=== PATIENT | female | born 2005 | race Caucasian/White ===

== ENCOUNTER → 2023-10-26 11:48 | Outpatient (BNVA) | payer BC, SELFPAY | PROVIDERS: Visit Provider Nurse Practitioner Women's Health | DX: Z34.90 Encounter for supervision of normal pregnancy, unspecified, unspecified trimester (principal) | CPT/HCPCS: 80053; 80307; 84315; 84439; 84443; 84481; 84702; 85025; 86592; 86762; 86803; 86850; 86900; 87086; 87340; 87806 ==

== ENCOUNTER 2023-10-27 09:18 | Outpatient (CLI) | payer BC, SELFPAY ==
[2023-10-27 09:20] VITALS: BMI 28.0
[2023-10-27 09:52] VITALS: RESP 16
[2023-10-27 10:00] VITALS: BP 119/67; PULSE 68
[2023-10-27] MEDS: lactated ringers 1,000 ML 999 ML IV (10:10)
[2023-10-27] MEDS: ondansetron 2 mg/ML SDV 2 mL 4 MG IVP (10:10)
[2023-10-27 10:35] LABS: Urine Appearance Hazy (CLEAR); Urine Color Yellow (Yellow)
[2023-10-27 10:36] LABS: Bilirubin Urine 1+ (Negative); Blood Urine Neg (Negative); Glucose Urine UA Norm (Normal); Ketones Urine 3+ (Negative); Leukocyte Esterase Urine Negative (Negative); Nitrate Urine Negative (Negative); Protein Urine Neg (Negative); Urobilinogen Urine 4 mg/dL (Negative); pH Urine 5 (5-7)
[2023-10-27 10:37] LABS: Mucus Urine 3+ /hpf; RBC Urine RARE /hpf (0-2); WBC Urine 0-4 /hpf (0-5)
[2023-10-27 10:38] LABS: Add Urine Culture? No; Bacteria Urine 1+ /hpf
[2023-10-27 10:40] LABS: Anion Gap 16.6 (5-19); Blood Urea Nitrogen 6 mg/dL (6-20); Calcium 9.2 mg/dL (8.5-10.5); Carbon Dioxide 21 mmol/L (22-29); Chloride 102 mmol/L (98-107); Glomerular Filtration Rate 127.5 mL/min (90-130); Glucose 79 mg/dL (65-115); Osmolality Calculated 279 mOsm/kg (285-295); Potassium 3.6 mmol/L (3.5-5.1); Sodium 136 mmol/L (136-145)
--- NOTE | 2023-10-27 11:50 | PC.NURSE ---
PT WAS ON MONITOR FOR BLOOD PRESSURES UNSURE WHY [facility]
== END 2023-10-27 11:25 | disposition home or self-care (01) ==
LOC: OPOB 09:23 → OBGYN 09:25
PROVIDERS: Visit Provider Obstetrics & Gynecology
DX: O21.9 Vomiting of pregnancy, unspecified (principal); Z3A.00 Weeks of gestation of pregnancy not specified
CPT/HCPCS: 36415; 80048; 81001; 99211; J2405; J7120

== ENCOUNTER → 2023-11-16 11:21 | Outpatient (BNVA) | payer BC, SELFPAY | PROVIDERS: Visit Provider Nurse Practitioner Women's Health | DX: Z36.87 Encounter for antenatal screening for uncertain dates (principal) | CPT/HCPCS: 76815 ==

== ENCOUNTER → 2023-12-20 10:28 | Outpatient (BNVA) | payer BC, SELFPAY | PROVIDERS: Visit Provider Obstetrics & Gynecology | DX: Z34.90 Encounter for supervision of normal pregnancy, unspecified, unspecified trimester (principal) | CPT/HCPCS: 76805; 84315 ==

== ENCOUNTER → 2024-01-18 10:21 | Outpatient (BNVA) | payer BC, SELFPAY | PROVIDERS: Visit Provider Obstetrics & Gynecology | DX: Z36.9 Encounter for antenatal screening, unspecified (principal) | CPT/HCPCS: 76816 ==

== ENCOUNTER 2024-07-15 08:56 | Emergency (ER) | payer SELFPAY ==
[2024-07-15 09:05] VITALS: BP 117/65; PULSE 64; RESP 17; TEMP 36.6; O2SAT 100; BMI 26.1
--- NOTE | 2024-07-15 09:08 | XRR_ITS ---
PROCEDURE INFORMATION: Exam: XR Left Elbow Exam date and time: 07/15/2024 9:21 AM Age: 18 years old Clinical indication: Injury or trauma; Fall; Blunt trauma (contusions or hematomas); Elbow; Left; Additional info: Get to mid forearm TECHNIQUE: Imaging protocol: Radiologic exam of the left elbow. Views: 3 or more views. COMPARISON: CR (UP EXM, ) 07/15/2024 9:21 AM FINDINGS: Bones/joints: Prominent fat pads indicate a left elbow joint effusion. Otherwise, unremarkable. Soft tissues: Otherwise, unremarkable soft tissues. XR/XR elbow LT min 3V* [id number] IMPRESSION: Left elbow joint effusion. No other acute findings.
--- NOTE | 2024-07-15 09:08 | XRR_ITS ---
PROCEDURE INFORMATION: Exam: XR Left Wrist Exam date and time: 07/15/2024 9:21 AM Age: 18 years old Clinical indication: Injury or trauma; Fall; Blunt trauma (contusions or hematomas); Wrist; Left; Additional info: Get to mid forearm TECHNIQUE: Imaging protocol: Radiologic exam of the left wrist. Views: 3 or more views. COMPARISON: CR (UP EXM, ) 07/15/2024 9:21 AM FINDINGS: Bones/joints: Normal. Soft tissues: Normal. XR/XR wrist LT min 3V* [id number] IMPRESSION: No acute findings.
--- NOTE | 2024-07-15 09:08 | W.ED.UPPEXIN ---
HPI - Extremity Injury (Upper) General: Chief Complaint: Extremity Injury, Upper Stated Complaint: Left arm injury Time Seen by Provider: 07/15/24 08:59 Source: patient Mode of arrival: ambulatory Limitations: no limitations History of Present Illness: Patient is a nice 18-year-old female presents to ED today for evaluation of left arm injury that she sustained yesterday after accidentally slipping on concrete and falling on her outstretched hand. She is complaining of pain to her left elbow and left wrist and has noticed swelling around the left elbow. She has no other injuries or complaints at this time. complaint: injury to: left, elbow and wrist Onset (ago): day(s) (yesterday evening) Other injuries: none Place: home Relieving factors: immobilization Exacerbating factors: movement of extremity Associated symptoms: Reports no associated symptoms; Denies neck pain or weakness in extremities Treatments prior to arrival: other (sling) Related Data Home Medications Medication Instructions Recorded Confirmed docosahexaenoic acid 200 mg mg PO 10/26/23 01/10/24 capsule ( DHA) Previous Rx's Medication Instructions Recorded promethazine 25 mg tablet 25 mg PO TID PRN nausea and 10/26/23 vomiting #30 tabs ondansetron HCl 4 mg tablet 4 mg PO Q8H PRN nausea and 11/16/23 vomiting #60 tabs Allergies Allergy/AdvReac Type Severity Reaction Status Date / Time amoxicillin Allergy Unknown ALGY-Anaphy Verified 01/10/24 09:15 laxis Penicillins Allergy Unknown ALGY-Anaphy Verified 01/10/24 09:15 laxis Review of Systems Musc: Reports: joint pain (L elbow, L wrist), joint swelling (L elbow) and limited range of motion (L elbow); Denies: neck pain or back pain Skin/Breast: Denies: rash Neuro: Denies: headache(s), numbness in extremities, weakness in extremities, sensory changes or dizziness PFSH ED PFSH: Family History Mother Diabetes Grandmother Diabetes Grandfather Diabetes Other Diabetes mellitus type 1 Denies family history of Colon cancer Ovarian cancer Heart disease Breast cancer Hypertension Uterine cancer Thyroid disease Stroke Physical Exam Const: COMMON NORMALS: no acute distress, average body habitus, patient oriented x3, no limitations, healthy appearing, alert and well nourished Extremity: GENERAL: Yes normal exam except as noted LEFT UPPER EXTREMITY: Yes elbow joint (effusion, limited ROM secondary to pain) Left elbow: Yes ROM (decreased) and Yes neurovascular exam (normal) and Yes wrist (mild discomfort with distal radial palpation; no swelling) Left wrist: Yes inspection (normal gross inspection) and Yes neurovascular exam (normal) Neuro: COMMON NORMALS: patient oriented x3, moves all extremities, no focal motor deficits and no sensory deficits noted SENSORIUM/ORIENTATION: Yes alert Skin: TRAUMA: no lacerations or abrasions Course Vital Signs: Vital signs: Vital Signs Temperature 97.9 F 07/15/24 09:05 Pulse Rate 64 07/15/24 09:05 Respiratory Rate 17 07/15/24 09:05 Blood Pressure 117/65 07/15/24 09:05 Pulse Oximetry 100 07/15/24 09:05 Oxygen Delivery Me thod Room Air 07/15/24 09:05 MDM - Extremity Injury (Upper) Medical Decision Making Patient with history of trauma, limited ROM of elbow, and effusion present. Radiology read negative. I question a small radial head fx on personal interpretation. Regardless-based on history she will be placed in a sling for occult elbow fracture and will follow up with orthopedics. Medical Records I reviewed the patient's medical records. Lab Data Radiology Impressions Elbow X-Ray 07/15/24 09:08 IMPRESSION: Left elbow joint effusion. No other acute findings. Wrist X-Ray 07/15/24 09:08 IMPRESSION: No acute findings. All radiology interpretation(s) finalized by discharge Discharge Plan Discharge Patient Disposition: Home Clinical Impression: Occult closed fracture of left elbow Qualifiers: Encounter type: initial encounter Qualified Code(s): S42.402A - Unspecified fracture of lower end of left humerus, initial encounter for closed fracture Condition: Stable Prescriptions: No Action DHA 200 mg capsule PO promethazine 25 mg tablet 25 mg PO TID PRN (Reason: nausea and vomiting) Qty: 30 3RF ondansetron HCl 4 mg tablet 4 mg PO Q8H PRN (Reason: nausea and vomiting) Qty: 60 2RF Discharge Orders: Discharge ED (Routine); Ordered 07/15/24 Ordered By: Dana Nolasco Patient Instructions: Elbow Fracture (DC) Activity Restrictions/Additional Instructions: As we discussed, case management should reach out to you shortly to help set you up with your follow-up orthopedic appointment. You need to stay in your sling at all times apart from showering or bathing until told otherwise by orthopedics. Coding Level of Care Code ED Mitigation Supervisor for Heidi Alexander
--- NOTE | 2024-07-15 09:48 | DCPLANNER ---
messaged ortho for er f/u
[2024-07-15 09:52] VITALS: BP 117/65; PULSE 68; RESP 17; TEMP 36.6; O2SAT 97
== END 2024-07-15 09:56 | disposition home or self-care (01) ==
PROVIDERS: Emergency Provider Physician Assistant
DX: S42.492A Other displaced fracture of lower end of left humerus, initial encounter for closed fracture (principal); W01.0XXA Fall on same level from slipping, tripping and stumbling without subsequent striking against object, initial encounter
CPT/HCPCS: 73080; 73110; 99283

== ENCOUNTER → 2024-07-24 14:40 | Outpatient (BNVA) | payer MEDICAID, SELFPAY | PROVIDERS: Visit Provider Nurse Practitioner | DX: S52.122A Displaced fracture of head of left radius, initial encounter for closed fracture (principal); X58.XXXA Exposure to other specified factors, initial encounter | CPT/HCPCS: 73080 ==

== ENCOUNTER 2024-08-21 13:45 | Outpatient (CLI) | payer MEDICAID, SELFPAY ==
--- NOTE | 2024-08-21 13:45 | MR_ITS ---
WS: [id number] MRI LEFT ELBOW WITHOUT CONTRAST. COMPARISON: Radiograph 07/24/2024 Multiplanar, multisequence imaging is performed without contrast. Large amount of marrow edema involving the proximal radius including the radial head and neck into th e diaphysis. There is a nondisplaced transverse fracture through the radial neck. No additional marro w edema and no additional fractures. There is a very small joint effusion. Radial and ulnar collateral ligaments and the flexor and extensor tendons are intact. No edema or tea r is identified. The biceps tendon normally attaches at the bicipital groove. There is no tear identi fied. Distal triceps tendon is normal. Normal biceps brachialis tendon. MR/MR elbow LT wo con* [id number] IMPRESSION: 1. Marrow edema in the proximal radius extending into the diaphysis. 2. Nondisplaced radial neck fracture. 3. Small joint effusion. 4. No tendon or ligament tears identified.
== END 2024-08-21 13:50 | disposition home or self-care (01) ==
PROVIDERS: PCP Nurse Practitioner Family; Visit Provider Nurse Practitioner
DX: S52.101A Unspecified fracture of upper end of right radius, initial encounter for closed fracture (principal); W01.0XXA Fall on same level from slipping, tripping and stumbling without subsequent striking against object, initial encounter
CPT/HCPCS: 73221

== ENCOUNTER → 2024-09-04 09:25 | Outpatient (BNVA) | payer MEDICAID, SELFPAY | PROVIDERS: PCP Nurse Practitioner Family; Visit Provider Nurse Practitioner | DX: S52.125D Nondisplaced fracture of head of left radius, subsequent encounter for closed fracture with routine healing; X58.XXXD Exposure to other specified factors, subsequent encounter | CPT/HCPCS: 73080 ==

== ENCOUNTER → 2025-04-24 14:27 | Outpatient (BNVA) | payer MEDICAID, SELFPAY | PROVIDERS: PCP Nurse Practitioner Family; Visit Provider Nurse Practitioner Women's Health | DX: N91.2 Amenorrhea, unspecified (principal); Z32.01 Encounter for pregnancy test, result positive | CPT/HCPCS: 81025; 84702; 86850; 86900 ==

== ENCOUNTER → 2025-05-21 10:39 | Outpatient (BNVA) | payer MEDICAID, SELFPAY | PROVIDERS: PCP Nurse Practitioner Family; Visit Provider Nurse Practitioner Women's Health | DX: Z36.9 Encounter for antenatal screening, unspecified (principal); O30.032 Twin pregnancy, monochorionic/diamniotic, second trimester | CPT/HCPCS: 76801 ==

== ENCOUNTER → 2025-05-28 08:04 | Outpatient (BNVA) | payer MEDICAID, SELFPAY | PROVIDERS: PCP Nurse Practitioner Family; Visit Provider Nurse Practitioner Women's Health | DX: Z34.90 Encounter for supervision of normal pregnancy, unspecified, unspecified trimester (principal); Z3A.11 11 weeks gestation of pregnancy | CPT/HCPCS: 80307; 81000; 84443; 85025; 86592; 86762; 86803; 87086; 87340; 87491; 87591; 87661; 87806 ==

== ENCOUNTER → 2025-06-04 11:00 | Outpatient (BNVA) | payer MEDICAID, SELFPAY | PROVIDERS: PCP Nurse Practitioner Family; Visit Provider Obstetrics & Gynecology | DX: Z12.4 Encounter for screening for malignant neoplasm of cervix (principal) | CPT/HCPCS: 87624 ==

== ENCOUNTER 2025-06-17 12:18 | Emergency (ER) | payer MEDICAID, SELFPAY ==
--- NOTE | 2025-06-17 12:19 | US_ITS ---
WS: [id number] Obstetrical ultrasound, limited. HISTORY: Twin gestation with bleeding and cramping. COMPARISON: 05/21/2025 There is a twin gestation. Labeling of the twin gestation is not sufficient to document which fetus is twin A and which fetus is twin B. Both gestations have normal cardiac activity around 157 to 159 bpm. Normal amount of amniotic fluid. The cervix is closed measuring 4.0 cm. Placenta is anterior and only a single placenta is identified. There is no abruption or previa. US/US OB limited twins [id number] IMPRESSION: 1. Very limited evaluation of the twin gestation. Normal heart rates within ea ch gestation. 2. Normal amniotic fluid. 3. Cervix is closed.
--- OUTSIDE RECORDS SUMMARY | 2025-06-17 12:24 | XMS_ITS | Patient Health Record ---
Author Organization [facility] Address [address] [place] [address] Care Team Providers Care Trimmer Tailer Name Role Phone Elina Mtz Primary Care Provider MARIO, [facility] Unavailable Unavailable Allergies Allergen (clinical drug ingredient) Drug/Non Drug Allergy documented on EMR Reaction Allergy Type Onset Date Status Penicillin Unknown Drug Allergy Active Results Component Value Reference Range Flag Notes UA Without Micro-[place], [place] - [address] Reviewed date:01/22/2025 08:42:12 AM Interpretation: Performing Lab: Notes/Report: Color orange Clarity cloudy Glucose negative Bili negative Ketones negative Sp Celina 1.010 Blood negative pH 7.0 Protein negative Urobili negative Nitrites positive Leukocytes 3+ Test, Urine - 8102 5 Reviewed date:04/09/2025 02:37:18 PM Interpretation: Performing Lab: Notes/Report: Test, Urine positive T3 Free [id number] Reviewed date:01/14/2025 12:42:35 PM Interpretation: Performing Lab: Notes/Report: Diagnosis Description: Encounter for screening for other suspected endocrine disorder Free T3 3.7 2.3-4.2 pg/mL T4 [id number] Reviewed date:01/14/2025 12:42:41 PM Interpretation: Performing Lab: Notes/Report: Diagnosis Description: Encounter for screening for other suspected endocrine disorder Free T4 1.13 0.89-1.76 NG/DL HCG Serum Quant [id number] Reviewed date:01/22/2025 08:42:38 AM Interpretation: Performing Lab: Notes/Report: Diagnosis Description: Abnormal uterine and vaginal bleeding, unspecified HCG Quant 3 NA 1-3 mlU/ML non female . < 1 mlU/ML adult male Thyroid Stimulating Hormone (TSH) [id number] Reviewed date:01/22/2025 08:42:49 AM Interpretation: Performing Lab: Notes/Report: Diagnosis Description: Encounter for screening for other suspected endocrine disorder TSH 2.031 .358-3.740 MlU/ML CBC w\ Auto Diff 73067 Reviewed date:01/22/2025 08:43:01 AM Interpretation: Performing Lab: Notes/Report: Diagnosis Description: Abnormal uterine and vaginal bleeding, unspecified WBC 8.2 4.5-11.0 X10'3 RBC 4.46 4.00-5.20 X10'6 Hgb 12.2 12.0-16.0 G/DL Hct 38.8 36.0-46.0 % MCV 87.0 80.0-100.0 FL MCH 27.4 27.0-31.0 PG MCHC 31.4 31.0-37.0 G/DL Platelet 306 150-400 X10'3 RDW-SD 40.4 35.0-49.0 FL RDW-CV 12.8 12.2-15.6 % MPV 11.0 9.2-12.0 FL Neutro Auto% 66.1 40.0-70.0 % Lymph Auto% 25.2 22.0-44.0 % [place] Auto% 6.1 3.0-7.0 % Eos Auto% 1.7 2.0-4.0 % LOW Baso Auto% 0.7 0.0-1.0 % Imm Gran% .2 .0-.4 % Neutro Abs 5.45 .80-7.70 Absolute Neutrophil Count 5450 NA Lymph Abs 2.08 .10-4.10 [place] Abs .50 .20-1.00 Eos Abs .14 .00-.40 Baso Abs .06 .00-.20 Imm Gran Abs .02 .00-.10 NRBC# .00 .00-.20 X10'3 NRBC% .00 .00-.20 /100 int act WBC's Reason For Referral Reason Left elbow pain, hea led fracture Diagnosis 1 Nondisplaced fractur e of head of left radius, subsequent encounter for closed fracture with routine healing (S52.125D) Diagnosis 2 Left elbow pain (M25 .522) Referral Organization [facility] Referring Provider First Name Elina Referring Provider Last Name Anaderrick Referring Provider Speciality Nurse Shaylee hopkins Referred Provider Specialty Physical The rapist General Notes BirgitmelanieAlis 09/26 03:13:33 PM >faxed to [facility] Referral Priority Routine Reason IUP Diagnosis 1 IUP (intrauterine pr egnancy), incidental (Z33.1) Referral Organization [facility] Referring Provider First Name Elina Referring Provider Last Name [facility] Referring Provider Speciality Nurse Shaylee hopkins Referred Provider undefined General Notes BirgitmelanieAlis 04/22 03:47:44 PM >FAXED TO DR JIMENEZ AT [facility] Referral Priority Routine Medications Medication SIG (Take, Route, Frequency, Duration) Notes Start Date End Date Status Vitamins 27-0.8 MG Tablet 1 tablet Orally Once a day; Duration: 30 days 04/09/2025 Active Ondansetron 4 MG Tablet Disintegrating 1 tablet on the tongue and allow to dissolve Orally every 6 hrs as needed 04/09/2025 Active Escitalopram Oxalate 10 MG Tablet Take 1 tablet by mouth once daily; Duration: 30 days Not-Taking Immunizations Vaccine Route Administration Date Status Comme nts Flucelvax Trivalent, Syringe 0.5 mL, PF IM Intramuscular 12/17/2024 Administered Patient tolerat ed well. Tuberculin PPD IM Intramuscular 12/17/2024 Administered Pa forrest tolerated well. Patient did not get ppd read last time, She is to return 12/19/2024 to have read Flucelvax Trivalent, Syringe 0.5 mL, PF Unknown 09/25/2024 Refused Tuberculin PPD IM Intramuscular 12/03/2024 Administered Patient tolerated well. Will return on 12/05/24 to be read. Patient did not return to have read Social History Tobacco Use: Social History Observation Description Date Details (start date - stop date) Never Smoker NA - NA Social History Depression Screening Social Info Question Answer Notes PHQ-9 Little interest or pleasure in doing thin gs Not at all Feeling down, depressed, or hopeless Not at all Trouble falling or staying asleep, or sleeping t oo much Not at all Feeling tired or having little energy Not at all Poor appetite or overeating Not at all Feeling bad about yourself, or that you are a failure, or have let yourself or your family down Not at all Trouble concentrating on thi ngs, such as reading the newspaper or watching television Not at all Moving or speaking so slowly that other people could have noticed. Or the opposite ? being so fidgety or restless that you have been moving around a lot more than usual Not at all Thoughts that you would be b annabelle off , or of hurting yourself in some way Not at all Total Score 0 Drugs/Alcohol: Social Info Question Answer Notes Alcohol Screen (Audit-C) Did you have a drink containing alcohol in the past year? No Points 0 Interpretation Negative Tobacco Use: Social Info Question Answer Notes xTobacco Use/Smoking Are you a nonsmoker Section Notes: 05/25/22 05/25/22 05/25/22 05/25/22 05/25/22 05/29/23 PHQ9 05/25/22 05/29/23 PHQ9 10/28/24 PHQ9 05/25/22 05/29/23 PHQ9 10/28/24 PHQ9 05/25/22 05/29/23 PHQ9 10/28/24 PHQ9 05/25/22 05/29/23 PHQ9 10/28/24 PHQ9 05/25/22 05/25/22 05/25/22 05/25/22 05/29/23 PHQ9 05/25/22 05/29/23 PHQ9 05/25/22 05/29/23 PHQ9 05/25/22 05/29/23 PHQ9 05/25/22 05/29/23 PHQ9 10/28/24 PHQ9 05/25/22 05/29/23 PHQ9 10/28/24 PHQ9 Problems Problem Type SNOMED Code ICD Code Onset Dates Problem Status W/U Status Risk Notes Problem Bipolar 1 disorder (812051847) Bipolar 1 disorder (F31.9) Active confirmed Problem Attention deficit hyperactivity disorder (367093223) Attention deficit hyperactivity disorder (ADHD), unspecified ADHD type (F90.9) Active confirmed Problem Sinusitis (39073813) Sinusitis (J32.9) Active confirmed Problem Amenorrhea (04701866) Amenorrhea (N91.2) Active confirmed Problem Abnormal vaginal bleeding (702456959) Abnormal vaginal bleeding (N93.9) Active confirmed Problem Seasonal allergy (223769460) Seasonal allergies (J30.2) Active confirmed Problem Anxiety depression (535334351) Anxiety with depression (F41.8) Active confirmed Problem Gastroesophageal reflux disease (488297430) GERD (gastroesophagea l reflux disease) (K21.9) Active confirmed Vital Signs Heart Rate 85 /min 04/09/2025 Temperature 97.9 degrees Fahrenheit 04/09/2025 Respiratory Rate 20 /min 04/09/2025 Blood pressure diastolic 74 mm Hg 04/09/2025 Oximetry 99 % 04/09/2025 Height-cm 175.26 cm 04/09/2025 Weight-kg 83.46 kg 04/09/2025 Height 69 in 04/09/2025 Blood pressure systolic 120 mm Hg 04/09/2025 Weight 184 lbs 04/09/2025 BMI 27.17 kg/m2 04/09/2025 Encounters Encounter Location Date Provider Diagnosis [facility] [address] [place] [address] 11/18/2024 Elina Mtz Ringworm of body B35.4 [facility] [address] [place] [address] 10/28/2024 Elina Mtz Bipolar 1 disorder F31.9 ; Anxiety with depression F41.8 and Depression screen Z13.31 [facility] [address] [place] [address] 09/25/2024 Elina Mtz Bipolar 1 disorder F31.9 ; Anxiety with depression F41.8 ; Nondisplaced fracture of head of left radius, subsequent encounter for closed fracture with routine healing S52.125D ; Left elbow pain M25.522 ; Encounter for immunization Z23 and Immunization not carried out because of patient refusal Z28.21 [facility] [address] [place] [address] 04/09/2025 Elina Mtz IUP (intrauterine ), incidental Z33.1 and Nausea R11.0 [facility] [address] [place] [address] 12/03/2024 Elina Mtz Need for tuberculosi s vaccination Z23 [facility] [address] [facility] [address] [place] [address] 01/21/2025 Elina Mtz Acute urinary tract infection N39.0 [facility] [address] [facility] [address] [place] [address] 01/13/2025 Elina Mtz Abnormal vaginal bleeding N93.9 and Screening for thyroid disorder Z13.29 [facility] [address] [place] [address] 07/03/2024 Elina Mtz Sinusitis J32.9 [facility] [address] [facility] [address] [place] [address] 12/30/2024 Elina Mtz Bipolar 1 disorder F31.9 and Anxiety with depression F41.8 [facility] [address] [place] [address] 12/17/2024 Elina Mtz Encounter for immunization Z23 [facility] [address] [place] [address] 04/22/2025 Elina Mtz IUP (intrauterine ), incidental Z33.1 [facility] [address] [facility] [address] [place] [address] 12/18/2024 Elina Mtz Sinusitis J32.9 Assessments Encounter Date Diagnosis (ICD Code) Assessment Notes Treatment Notes Treatment Clinical Notes Section Notes 07/03/2024 Sinusitis (ICD-10 - J32.9) Increase fluids, take medication as directed. RTC if no improvement with treatment. 09/25/2024 Bipolar 1 disorder (ICD-10 - F31.9) Recheck in 1 month. 09/25/2024 Anxiety with depression (ICD-10 - F41.8) 11/18/2024 Ringworm of body (ICD-10 - B35.4) RTC if no improvement with treatment. 12/03/2024 Need for tuberculosis vaccination (ICD-10 - Z23) 12/17/2024 Encounter for immunization (ICD-10 - Z23) Immunization supplied by [employer]. 12/18/2024 Sinusitis (ICD-10 - J32.9) 12/30/2024 Bipolar 1 disorder (ICD-10 - F31.9) Recheck in 3 months. 01/13/2025 Abnormal vaginal bleeding (ICD-10 - N93.9) 01/13/2025 Screening for thyroid disorder (ICD-10 - Z13.29) 01/21/2025 Acute urinary tract infection (ICD-10 - N39.0) Increase water intake, take medication as directed. RTC if no improvement with treatment. 04/09/2025 IUP (intrauterine ), incidental (ICD-10 - Z33.1) 04/09/2025 Nausea (ICD-10 - R11.0) 04/22/2025 IUP (intrauterine ), incidental (ICD-10 - Z33.1) 10/28/2024 Bipolar 1 disorder (ICD-10 - F31.9) Recheck in 2 months. 10/28/2024 Anxiety with depression (ICD-10 - F41.8) Continue Lexapro, stable. 10/28/2024 Depression screen (ICD-10 - Z13.31) 12/30/2024 Anxiety with depression (ICD-10 - F41.8) Continue Lexapro, stable. 09/25/2024 Nondisplaced fracture of head of left radius, subsequent encounter for closed fracture with routine healing (ICD-10 - S52.125D) 09/25/2024 Left elbow pain (ICD-10 - M25.522) 09/25/2024 Encounter for immunization (ICD-10 - Z23) 09/25/2024 Immunization not carried out because of patient refusal (ICD-10 - Z28.21) 01/13/2025 Other Venipuncture performed. Left arm. One attempt. Pt tolerated well, bleeding controlled with light dressing.Alis Ortega [facility] Plan Of Treatment No Information Insurance Providers Payer Name Payer Address Payer Phone Subscriber Number Group Number Insured Name Patient Relationship to Insured Coverage Start Date Coverage End Date [place] [address] [place] [phone] [id number] Lavell Coronado Self - patient is the insured 4 Medications Administered Medication Instructions Date of Administration Dosage Notes dexAMETHasone 05/29/2023 8 [phone] tolerated well. Medical (General) History Medical History History ICD Code bipolar disorder Surgical History Surgery Date(Month/Year) tonsillectomy and adenoidectomy
[2025-06-17 12:26] VITALS: BP 114/73; PULSE 85; RESP 16; TEMP 36.7; O2SAT 100
--- NOTE | 2025-06-17 12:32 | W.ED.FEMALGU ---
HPI - Female Genitourinary General: Chief complaint: Vaginal Bleeding Stated complaint: cramps, bleeding 17weeks preg with twins Time Seen by Provider: 06/17/25 12:19 Source: patient Mode of arrival: ambulatory Limitations: no limitations History of Present Illness: Patient is a 19-year-old female at approximately 17 weeks with a twin gestation here for complaints of vaginal bleeding that started early this morning when she woke up in her underwear was saturated in dark red blood. She states she is continuing to bleed a small amount but has not soaked a pad today. She is having some pelvic cramping. She follows up with [facility] and has an appointment scheduled with high school physical education teacher in [place] later this month. Patient states she has not had any recent injury or trauma. She has been moving and lifting some. She does complain of some vaginal discharge. She does report being treated for trichomonas and chlamydia recently through her OB office. MD elicited complaint: vaginal bleeding Pertinent past history: other (currently with twins) Onset (ago): hour(s) Severity: mild Quality of pain: cramping Vaginal discharge: yellow and other (green) Vaginal bleeding: dark red Exacerbating factors: none Relieving factors: none Associated symptoms: Reports vaginal bleeding (old appearing blood; no active bleeding) and vaginal discharge; Deny abdominal pain or headache(s) Treatment prior to arrival: none Sexual activity: Yes Patient : Yes Related Data Home Medications ?Medication ?Instructions ?Recorded ?Confirmed docosahexaenoic acid 200 mg mg PO 10/26/23 06/04/25 capsule ( DHA) Previous Rx's ?Medication ?Instructions ?Recorded ondansetron HCl 4 mg tablet 4 mg PO Q8H PRN nausea and 11/16/23 vomiting #60 tabs Hinged Elbow Brace #1 ea 07/24/24 famotidine 20 mg tablet (Pepcid) 20 mg PO BID #60 tabs 04/24/25 metoclopramide HCl 5 mg tablet 5 mg PO BID #60 tabs 05/28/25 (Reglan) azithromycin 500 mg tablet 2,000 mg (4 x 500 mg) PO .COMPLEX 05/29/25 #4 tabs metronidazole 500 mg tablet 500 mg PO BID 7 days #14 tabs 05/29/25 Allergies Allergy/AdvReac Type Severity Reaction Status Date / Time amoxicillin Allergy Unknown ALGY-Anaphy Verified 06/04/25 08:35 laxis Penicillins Allergy Unknown ALGY-Anaphy Verified 06/04/25 08:35 laxis Review of Systems Const: Denies: fever(s), chills, body aches, fatigue or malaise Card: Denies: chest pain Resp: Denies: dyspnea GI: Denies: abdominal pain : Reports: vaginal bleeding, vaginal discharge and pelvic pain (cramping); Denies: flank pain, difficulty voiding, dysuria, urinary frequency, urinary urgency, urinary hesitancy or hematuria Musc: Denies: neck pain, back pain, extremity pain, extremity swelling or joint swelling Skin/Breast: Denies: rash Neuro: Denies: headache(s), numbness in extremities, weakness in extremities, sensory changes or dizziness PFSH ED PFSH: Medical History Anxiety Major depression Bipolar 1 disorder Borderline personality disorder ADHD (attention deficit hyperactivity disorder) evaluation Fracture of radial head, left, closed Surgical History Hx of tonsillectomy H/O adenoidectomy Family History Mother Diabetes Grandmother Diabetes Grandfather Diabetes Other Diabetes mellitus type 1 Denies family history of Colon cancer Ovarian cancer Heart disease Breast cancer Hypertension Uterine cancer Thyroid disease Stroke Social History Smoking and tobacco/nicotine status: never used tobacco/nicotine Physical Exam Const: COMMON NORMALS: no acute distress, average body habitus, patient oriented x3, no limitations, healthy appearing, alert and well nourished Resp: COMMON NORMALS: normal respiratory effort and clear to auscultation bilaterally AUSCULTATION: clear to auscultation bilaterally Cardio: COMMON NORMALS: regular rate and regular rhythm RATE: regular rate RHYTHM: regular rhythm GI: COMMON NORMALS: Normal to inspection, nondistended, normoactive bowel sounds present and Soft to palpation INSPECTION: Yes normal to inspection and Yes gravid abdomen (fundus about level of umbilicus ) AUSCULTATION: Yes normoactive bowel sounds PALPATION: Yes Soft to palpation and Yes Tenderness to palpation present (GI) (throughout lower abdomen) : COMMON NORMALS: Yes no CVA tenderness BLADDER/KIDNEY EXAM: Yes no CVA tenderness EXTERNAL FEMALE EXAM: Yes normal appearance of the urethra SPECULUM EXAM - VAGINA: Yes vaginal bleeding (old appearing blood; no active bleeding) and No tissue present in vagina SPECULUM EXAM - CERVIX: Yes Cervical os closed OB/EXTERNAL & SPECULUM: vaginal bleeding (old appearing blood; no active bleeding); no tissue noted in vagina Back/Pelvis: COMMON NORMALS: no CVA tenderness Neuro: COMMON NORMALS: patient oriented x3 SENSORIUM/ORIENTATION: Yes alert Course Vital Signs: Vital signs: Vital Signs Temperature 98.1 F 06/17/25 12:26 Pulse Rate 85 06/17/25 12:26 Respiratory Rate 16 06/17/25 12:26 Blood Pressure 114/73 06/17/25 12:26 Pulse Oximetry 100 06/17/25 12:26 Oxygen Delivery Me thod Room Air 06/17/25 12:26 MDM - Female Medical Decision Making Patient's vital signs are stable. Her blood work overall is unremarkable. UA does not appear infected. Ultrasound imaging of her twin gestation is normal. Cervix is closed. On pelvic exam, she had a small amount of old appearing blood. No active bleeding. Had recently been treated for chlamydia and trichomonas through the women[facility] clinic. Retested for these today and these are negative. Patient will be allowed discharge with recommendations to follow-up with her OB provider here in [facility]. She also has upcoming appointment with high school physical education teacher in [place]. Medical Records I reviewed the patient's medical records. Lab Data I reviewed the patient's lab results. 06/17/25 12:54 06/17/25 12:54 Radiology Impressions Obstetrics Ultrasound 06/17/25 12:19 IMPRESSION: 1. Very limited evaluation of the twin gestation. Normal heart rates within each gestation. 2. Normal amniotic fluid. 3. Cervix is closed. Laboratory Results WBC 6.96 10^3/uL (3.29-11.43) 06/17/25 12:54 RBC 4.05 10^6/uL (3.85-5.65) 06/17/25 12:54 Hgb 11.40 g/dL (11.27-16.99) 06/17/25 12:54 Hct 34.3 % (36-47) L 06/17/25 12:54 MCV 84.7 fl (85-98) L 06/17/25 12:54 MCH 28.1 pg (27-33) 06/17/25 12:54 MCHC 33.2 g/dL (30-55) 06/17/25 12:54 RDW 13.2 % (12.1-15.1) 06/17/25 12:54 Plt Count 225 10^3/cmm (157-399) 06/17/25 12:54 MPV 10.1 fL (7.4-10.4) 06/17/25 12:54 Neut % (Auto) 65.9 % 06/17/25 12:54 Lymph % (Auto) 25.1 % 06/17/25 12:54 [place] % (Auto) 6.8 % 06/17/25 12:54 Eos % (Auto) 1.3 % 06/17/25 12:54 Baso % (Auto) 0.6 % 06/17/25 12:54 Neut # (Auto) 4.59 10^3/uL (1.8-7.7) 06/17/25 12:54 Lymph # (Auto) 1.8 10^3/uL (0.8-4.8) 06/17/25 12:54 [place] # (Auto) 0.5 10^3/uL (0.2-0.9) 06/17/25 12:54 Eos # (Auto) 0.1 10^3/uL (0.0-0.8) 06/17/25 12:54 Baso # (Auto) 0.0 10^3/uL (0.0-0.1) 06/17/25 12:54 Nucleated RBC % (auto) 0 % 06/17/25 12:54 Nucleated RBCs # 0.0 /100WBC 06/17/25 12:54 Sodium 139 mmol/L (136-145) 06/17/25 12:54 Potassium 3.7 mmol/L (3.5-5.1) 06/17/25 12:54 Chloride 108 mmol/L (98-107) H 06/17/25 12:54 Carbon Dioxide 21 mmol/L (22-29) L 06/17/25 12:54 Anion Gap 13.7 (5-19) 06/17/25 12:54 BUN 5 mg/dL (6-20) L 06/17/25 12:54 Creatinine 0.5 mg/dL (0.5-0.9) 06/17/25 12:54 GFR Calculation 155.7 mL/min (90-130) H 06/17/25 12:54 Glucose 84 mg/dL (65-115) 06/17/25 12:54 Calculated Osmolality 284 mOsm/kg (285-295) L 06/17/25 12:54 Calcium 8.6 mg/dL (8.5-10.5) 06/17/25 12:54 Total Bilirubin 0.4 mg/dL (0.15-1.2) 06/17/25 12:54 AST 13 U/L (0-32) 06/17/25 12:54 ALT 7 U/L (0-33) 06/17/25 12:54 Alkaline Phosphatase 60 U/L (35-105) 06/17/25 12:54 Total Protein 6.2 g/dL (6.6-8.7) L 06/17/25 12:54 Albumin 3.4 g/dL (3.5-5.2) L 06/17/25 12:54 Globulin 2.8 g/dL (1.3-4.6) 06/17/25 12:54 Urine Color Yellow (Yellow) 06/17/25 12:42 Urine Appearance Cloudy (CLEAR) A 06/17/25 12:42 Urine pH 7.5 (5-7) 06/17/25 12:42 Ur Specific [place] 1.016 (1.005-1.030) 06/17/25 12:42 Urine Protein Negative (Negative) 06/17/25 12:42 Urine Glucose (UA) Negative (Normal) 06/17/25 12:42 Urine Ketones Negative (Negative) 06/17/25 12:42 Urine Blood 2+ (Negative) A 06/17/25 12:42 Urine Nitrate Negative (Negative) 06/17/25 12:42 Urine Bilirubin Negative (Negative) 06/17/25 12:42 Urine Urobilinogen 1.0 mg/dL (Negative) 06/17/25 12:42 Ur Leukocyte Esterase Negative (Negative) 06/17/25 12:42 Urine RBC 0-2 /hpf (0-2) 06/17/25 12:42 Urine WBC 0-5 /hpf (0-5) 06/17/25 12:42 Ur Squamous Epith Cells 0-5 /hpf (0-5) 06/17/25 12:42 Amorphous Sediment Not Reportable 06/17/25 12:42 Urine Bacteria None seen /hpf (NONE) 06/17/25 12:42 Hyaline Casts 0-4 /lpf H 06/17/25 12:42 C. trachomatis (PCR) Not detected (Negative) 06/17/25 12:59 N. gonorrhoeae (PCR) Not detected (Negative) 06/17/25 12:59 All radiology interpretation(s) finalized by discharge Discharge Plan Discharge Patient Disposition: Home Clinical Impression: Vaginal bleeding during Twin Qualifiers: Multiple gestation type: unspecified Trimester: second trimester Qualified Code(s): O30.002 - Twin , unspecified number of placenta and unspecified number of amniotic sacs, second trimester Condition: Stable Prescriptions: No Action DHA 200 mg capsule PO ondansetron HCl 4 mg tablet 4 mg PO Q8H PRN (Reason: nausea and vomiting) Qty: 60 2RF (DME) Hinged Elbow Brace See Rx Instructions .ROUTE .MEDSUPPLY Qty: 1 0RF Rx Instructions: locked at 90 degrees famotidine [Pepcid] 20 mg tablet 20 mg PO BID Qty: 60 2RF metoclopramide HCl [Reglan] 5 mg tablet 5 mg PO BID Qty: 60 2RF Rx Instructions: take once daily metronidazole 500 mg tablet 500 mg PO BID 7 Days Qty: 14 0RF azithromycin 500 mg tablet 2,000 mg PO .COMPLEX Qty: 4 0RF Rx Instructions: 2,000 mg orally take one dose x 1; Discharge Orders: Discharge ED (Routine); Ordered 06/17/25 Ordered By: Dana Nolasco Referrals: Elina Mtz APN [Primary Care Provider, Family Practice] Patient Instructions: Patient Portal & Domingo Instructions Activity Restrictions/Additional Instructions: You may return to the emergency department for onset of worsening pain, worsening or severe vaginal bleeding, fevers, generally feeling worse or unwell, lightheadedness/dizziness/passing out episodes, or any other concerns you may have. Print Language: Portuguese Coding Level of Care Code ED Product Tester for Heidi Alexander
[2025-06-17 13:02] LABS: Hematocrit 34.3 % (36-47); Hemoglobin 11.40 g/dL (11.27-16.99); Mean Corpuscular HGB Conc 33.2 g/dL (30-55); Mean Corpuscular Hemoglobin 28.1 pg (27-33); Mean Corpuscular Volume 84.7 fl (85-98); Nucleated Red Blood Cells % 0 %; Platelet Count 225 10^3/cmm (157-399); Red Blood Count 4.05 10^6/uL (3.85-5.65); White Blood Count 6.96 10^3/uL (3.29-11.43)
[2025-06-17 13:08] LABS: Glucose Urine UA Negative (Normal); Nitrate Urine Negative (Negative); Specific Gravity, Urine 1.016 (1.005-1.030)
[2025-06-17 13:14] LABS: Add Urine Microscopic? YES
[2025-06-17 13:22] LABS: Alanine Aminotransferase 7 U/L (0-33); Albumin Level 3.4 g/dL (3.5-5.2); Alkaline Phosphatase 60 U/L (35-105); Anion Gap 13.7 (5-19); Aspartate Amino Transferase 13 U/L (0-32); Blood Urea Nitrogen 5 mg/dL (6-20); Calcium 8.6 mg/dL (8.5-10.5); Carbon Dioxide 21 mmol/L (22-29); Chloride 108 mmol/L (98-107); Creatinine Clr Calc Pharmacy 197.2470; Globulin 2.8 g/dL (1.3-4.6); Glucose 84 mg/dL (65-115); Osmolality Calculated 284 mOsm/kg (285-295); Potassium 3.7 mmol/L (3.5-5.1); Sodium 139 mmol/L (136-145); Total Protein 6.2 g/dL (6.6-8.7)
[2025-06-17 14:37] LABS: Neisseria Gonorrhea NOT DETECTED (Negative)
== END 2025-06-17 14:36 | disposition home or self-care (01) ==
PROVIDERS: Emergency Provider Physician Assistant; PCP Nurse Practitioner Family
DX: O20.9 Hemorrhage in early pregnancy, unspecified (principal); Z3A.17 17 weeks gestation of pregnancy; O30.002 Twin pregnancy, unspecified number of placenta and unspecified number of amniotic sacs, second trimester
CPT/HCPCS: 36415; 76815; 80053; 81001; 85025; 87210; 87491; 87591; 99284; E0352

== ENCOUNTER → 2025-06-26 14:06 | Outpatient (BNVA) | payer MEDICAID, SELFPAY | PROVIDERS: PCP Nurse Practitioner Family; Visit Provider Nurse Practitioner Women's Health | DX: O30.009 Twin pregnancy, unspecified number of placenta and unspecified number of amniotic sacs, unspecified trimester (principal); Z34.82 Encounter for supervision of other normal pregnancy, second trimester | CPT/HCPCS: 84315 ==

== ENCOUNTER → 2025-07-23 13:16 | Outpatient (BNVA) | payer MEDICAID, SELFPAY | PROVIDERS: PCP Nurse Practitioner Family; Visit Provider Obstetrics & Gynecology | DX: O30.039 Twin pregnancy, monochorionic/diamniotic, unspecified trimester (principal) | CPT/HCPCS: 84315 ==

== ENCOUNTER → 2025-08-06 14:02 | Outpatient (BNVA) | payer MEDICAID, SELFPAY | PROVIDERS: PCP Nurse Practitioner Family; Visit Provider Nurse Practitioner Women's Health | DX: O30.032 Twin pregnancy, monochorionic/diamniotic, second trimester (principal) | CPT/HCPCS: 84315 ==

== ENCOUNTER 2025-10-15 09:55 | Outpatient (CLI) | payer MEDICAID, SELFPAY ==
[2025-10-15 09:55] VITALS: BMI 28.8
[2025-10-15 10:05] VITALS: BP 119/74; PULSE 118
[2025-10-15 10:07] VITALS: RESP 17
[2025-10-15 10:30] VITALS: BP 119/74; PULSE 118; RESP 17; O2SAT 98
== END 2025-10-15 10:30 | disposition home or self-care (01) ==
LOC: OPOB 10:00 → OBGYN 10:00
PROVIDERS: PCP Nurse Practitioner Family; Visit Provider Obstetrics & Gynecology
DX: O30.049 Twin pregnancy, dichorionic/diamniotic, unspecified trimester (principal); Z3A.00 Weeks of gestation of pregnancy not specified
CPT/HCPCS: 59025; 99211

== ENCOUNTER 2025-10-17 09:37 | Outpatient (CLI) | payer MEDICAID, SELFPAY ==
[2025-10-17 09:37] VITALS: BMI 29.2
[2025-10-17 09:45] VITALS: BP 114/75; PULSE 106
[2025-10-17 10:02] VITALS: BP 117/72; PULSE 115
== END 2025-10-17 10:12 | disposition home or self-care (01) ==
LOC: OPOB 09:37 → OBGYN 09:38
PROVIDERS: PCP Nurse Practitioner Family; Visit Provider Obstetrics & Gynecology
DX: O30.049 Twin pregnancy, dichorionic/diamniotic, unspecified trimester (principal); Z3A.00 Weeks of gestation of pregnancy not specified
CPT/HCPCS: 59025

== ENCOUNTER 2025-10-21 22:28 | Outpatient (CLI) | payer MEDICAID, SELFPAY ==
[2025-10-21] VITALS (17 sets, daily range): BP systolic 117–138; BP diastolic 67–80; PULSE 88–134; O2SAT 97–100
[2025-10-21 23:14] LABS: Glucose Urine UA Negative (Normal); Nitrate Urine Negative (Negative); Specific Gravity, Urine 1.028 (1.005-1.030)
== END 2025-10-21 23:56 | disposition home or self-care (01) ==
LOC: OPOB 22:30 → OBGYN 22:31
PROVIDERS: PCP Nurse Practitioner Family; Visit Provider Obstetrics & Gynecology
DX: O26.899 Other specified pregnancy related conditions, unspecified trimester (principal); Z3A.00 Weeks of gestation of pregnancy not specified; R10.9 Unspecified abdominal pain
CPT/HCPCS: 59025; 81001; 99211

== ENCOUNTER 2025-10-22 13:10 | Outpatient (CLI) | payer MEDICAID, SELFPAY ==
[2025-10-21 23:38] VITALS: TEMP 36.6
[2025-10-22] VITALS (12 sets, daily range): BP systolic 113–144; BP diastolic 58–80; PULSE 75–121; BMI 29.1
[2025-10-22] MEDS: ondansetron 2 mg/ML SDV 2 mL 4 MG IVP (14:05)
[2025-10-22 14:11] LABS: Hematocrit 29.0 % (36-47); Hemoglobin 8.80 g/dL (11.27-16.99); Mean Corpuscular HGB Conc 30.3 g/dL (30-55); Mean Corpuscular Hemoglobin 22.4 pg (27-33); Mean Corpuscular Volume 74.0 fl (85-98); Nucleated Red Blood Cells % 0 %; Platelet Count 185 10^3/cmm (157-399); Red Blood Count 3.92 10^6/uL (3.85-5.65); White Blood Count 8.78 10^3/uL (3.29-11.43)
[2025-10-22 14:35] LABS: Alanine Aminotransferase 9 U/L (0-33); Albumin Level 3.5 g/dL (3.5-5.2); Alkaline Phosphatase 190 U/L (35-105); Anion Gap 13.8 (5-19); Aspartate Amino Transferase 24 U/L (0-32); Blood Urea Nitrogen 4 mg/dL (6-20); Calcium 8.6 mg/dL (8.5-10.5); Carbon Dioxide 22 mmol/L (22-29); Chloride 105 mmol/L (98-107); Globulin 2.8 g/dL (1.3-4.6); Glucose 84 mg/dL (65-115); Osmolality Calculated 280 mOsm/kg (285-295); Potassium 3.8 mmol/L (3.5-5.1); Sodium 137 mmol/L (136-145); Total Protein 6.3 g/dL (6.6-8.7)
== END 2025-10-22 17:15 | disposition home or self-care (01) ==
LOC: OPOB 13:11 → OBGYN 13:11
PROVIDERS: PCP Nurse Practitioner Family; Visit Provider Obstetrics & Gynecology
DX: O30.009 Twin pregnancy, unspecified number of placenta and unspecified number of amniotic sacs, unspecified trimester (principal); Z3A.00 Weeks of gestation of pregnancy not specified
CPT/HCPCS: 36415; 59025; 80053; 85025; 96374; J2405; J7120

== ENCOUNTER 2025-10-24 09:21 | Outpatient (CLI) | payer MEDICAID, SELFPAY ==
[2025-10-24 09:27] VITALS: BP 119/66; PULSE 100
[2025-10-24 09:33] VITALS: BMI 29.5
[2025-10-24 09:52] VITALS: BP 119/66; PULSE 100; RESP 17
== END 2025-10-24 09:55 | disposition home or self-care (01) ==
LOC: OPOB 09:22 → OBGYN 09:22
PROVIDERS: PCP Nurse Practitioner Family; Visit Provider Obstetrics & Gynecology
DX: O30.049 Twin pregnancy, dichorionic/diamniotic, unspecified trimester (principal); Z3A.00 Weeks of gestation of pregnancy not specified
CPT/HCPCS: 59025

== ENCOUNTER 2025-10-29 09:25 | Outpatient (CLI) | payer MEDICAID, SELFPAY ==
[2025-10-29 09:30] VITALS: BMI 29.5
[2025-10-29 09:37] VITALS: BP 122/75; PULSE 116
[2025-10-29 09:51] LABS: Nitrazine Paper, PH Negative
[2025-10-29 10:01] VITALS: BP 117/70; PULSE 109
[2025-10-29 10:15] VITALS: BP 117/70; PULSE 109; RESP 17
== END 2025-10-29 10:15 | disposition home or self-care (01) ==
LOC: OPOB 09:26 → OBGYN 09:26
PROVIDERS: PCP Nurse Practitioner Family; Visit Provider Obstetrics & Gynecology
DX: O30.049 Twin pregnancy, dichorionic/diamniotic, unspecified trimester (principal); Z3A.00 Weeks of gestation of pregnancy not specified; N89.8 Other specified noninflammatory disorders of vagina
CPT/HCPCS: 59025; 83986; 84315; 87081; 99211

== ENCOUNTER 2025-10-31 09:17 | Outpatient (CLI) | payer MEDICAID, SELFPAY ==
[2025-10-31 09:22] VITALS: BP 116/74; PULSE 96
[2025-10-31 09:23] VITALS: BMI 29.8
[2025-10-31 09:43] VITALS: BP 131/72; PULSE 118
[2025-10-31 09:48] VITALS: RESP 18
== END 2025-10-31 09:51 | disposition home or self-care (01) ==
LOC: OPOB 09:17 → OBGYN 09:18
PROVIDERS: PCP Nurse Practitioner Family; Visit Provider Obstetrics & Gynecology
DX: O30.039 Twin pregnancy, monochorionic/diamniotic, unspecified trimester (principal); Z3A.00 Weeks of gestation of pregnancy not specified
CPT/HCPCS: 59025

== ENCOUNTER 2025-11-08 04:09 | Inpatient (IN) | payer MEDICAID, SELFPAY ==
[2025-11-07 21:31] VITALS: BP 113/64; PULSE 148; RESP 16; TEMP 35.7
[2025-11-07 21:32] VITALS: PULSE 112; O2SAT 97
[2025-11-07 21:50] VITALS: BMI 28.8
[2025-11-07 22:36] VITALS: BP 119/72; PULSE 96; RESP 16
[2025-11-07 23:52] LABS: Hematocrit 29.1 % (36-47); Hemoglobin 8.70 g/dL (11.27-16.99); Mean Corpuscular HGB Conc 29.9 g/dL (30-55); Mean Corpuscular Hemoglobin 21.4 pg (27-33); Mean Corpuscular Volume 71.5 fl (85-98); Nucleated Red Blood Cells % 0 %; Platelet Count 187 10^3/cmm (157-399); Red Blood Count 4.07 10^6/uL (3.85-5.65); White Blood Count 9.29 10^3/uL (3.29-11.43)
[2025-11-08] VITALS (99 sets, daily range): BP systolic 93–128; BP diastolic 50–81; PULSE 65–141; RESP 16; TEMP 36.6–36.7; O2SAT 86–100
[2025-11-08] MEDS: morphine 4 mg/mL SDV 1 mL 8 MG IM (00:06)
[2025-11-08] MEDS: promethazine 25 mg/mL SDV 1 mL IM (00:06)
--- NOTE | 2025-11-08 10:11 | USR_ITS ---
PROCEDURE INFORMATION: Exam: US , Limited Exam date and time: 11/08/2025 10:39 AM Age: 20 years old Clinical indication: Screening Exam; Routine US, uterus; Additional Info: twin est. weight and position on baby A and B LABS AND CLINICAL REPORTS: Gestational age (Established): 37 w 4 d Estimated due date (Established): 11/25/2025 TECHNIQUE: Imaging protocol: Real-time ultrasound of the maternal uterus with image documentation. Exam focused on the clinical indication. COMPARISON: US OB limited twins [id number] 06/17/2025 1:26 PM FINDINGS: Gestation: Twin intrauterine gestation heart rate: 155 bpm, BABY A; 157 bpm, BABY B Presentation: Vertex presentation, BABY A; vertex presentation, BABY B. Placenta: Placenta is anterior. Cervix is not visualized. BIOMETRY BABY A: Biparietal diameter (BPD): 9.22 cm. EGA (BPD) is 37 w 3 d. 66.9 % percentile Head circumference (HC): 32.84 cm. EGA (HC) is 37 w 2 d. 21.8 % percentile Abdominal circumference (AC): 32.21 cm. EGA (AC) is 36 w 1 d. 25.3 % percentile Femur length (FL): 7.09 cm. EGA (FL) is 36 w 2 d. 20.9 % percentile FL/BPD: 76.9. (Normal range: 71 - 87) BIOMETRY BABY B: Biparietal diameter (BPD): 8.60 cm. EGA (BPD) is 34 w 5 d. 5.1 % percentile Head circumference (HC): 32.04 cm. EGA (HC) is 36 w 1 d. 5.7 % percentile Abdominal circumference (AC): 30.20 cm. EGA (AC) is 34 w 1 d. Less than 3 % percentile Femur length (FL): 7.12 cm. EGA (FL) is 36 w 3 d. 23.8 % percentile FL/BPD: 82.79. (Normal range: 71 - 87) US/US OB limited twins [id number] IMPRESSION: Twin intrauterine gestation combined measurements of 35 weeks 3 days. Fetus designated baby B is small for gestational age.
--- NOTE | 2025-11-08 10:24 | PM.OBGYHP ---
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 ZEUS of 11/25/25, based on 13 week U/S, at 37 weeks 4 days with monochorionic diamniotic twin Chief Complaint: Pelvic pain and rhythmic contractions History of Present Illness: Patient initially admitted for observation with complaint of pelvic pain and regular contractions. Contractions subsequently became irregular with no significant change in cervical dilation, remaining at approximately 3 cm. Given decreased intensity and regularity of contractions this morning, patient was offered discharge with plan to return Monday for scheduled induction. Patient elected to proceed with induction today. Obstetric History: - Monochorionic diamniotic twin at 37 weeks 4 days gestation - Followed by [facility] St[facility], most recent evaluation within last 2 weeks - Twin A: Estimated weight 4 pounds 5 ounces, vertex presentation - Twin B: Estimated weight 4 pounds 15 ounces, non-vertex presentation - Growth discordance 25% (Twin B larger) - GBS negative - Followed in office by Dr. Collins Medical History: - -related anemia - Hemoglobin 8.8 g/dL on last check, 8.7 g/dL today - Previously recommended for iron infusions Allergies: Amoxicillin, Penicillin Vital Signs: - Blood pressure: 118/64 mmHg - Temperature: 98.1?F Physical Examination: - Cervical examination: Approximately 3 cm dilation, no significant change from prior examination Assessment: - Twin A: Reassuring heart rate tracing with moderate variability, accelerations present, no decelerations - Twin B: Reassuring heart rate tracing with moderate variability, accelerations present, no decelerations Assessment: 37 4/7 weeks monochorionic diamniotic twin gestation with Twin A vertex, Twin B non-vertex presentation, admitted for induction of labor. Maternal anemia present. Plan: 1. Delivery: Proceed with induction of labor as per patient preference if baby A and B within size and presentation parameters for vaginal delivery/pending in house US. Given Twin B non-vertex presentation, pet counselor patient regarding potential need for delivery for Twin B or combined vaginal- delivery. 2. Anemia management: Continue monitoring hemoglobin given current level of 8.7 g/dL. Consider type and screen, possible crossmatch given increased risk of hemorrhage with twin delivery and baseline anemia. Intravenous iron replacement may be considered if oral iron not tolerated or inadequate response. 3. Antibiotic prophylaxis: Avoid beta-lactam antibiotics given documented allergy. Alternative antibiotic coverage if delivery required. 4. monitoring: Continuous heart rate monitoring for both twins throughout labor given monochorionic diamniotic twin at 37+ weeks. 5. Delivery readiness: Operating room immediately available for potential emergent delivery. Present Details : 5 Para: 1 Labs Rubella: Immune RPR: Negative GBS: Negative Medications/Allergies Home Medications ?Medication ?Instructions ?Recorded ?Confirmed ?Last Taken ?Type docosahexaenoic acid 200 mg 200 mg PO DAILY 10/26/23 11/07/25 11/07/25 09:00 History capsule ( DHA) famotidine 20 mg tablet (Pepcid) 20 mg PO BID #60 tabs 04/24/25 11/07/25 11/07/25 17:00 Rx metoclopramide HCl 5 mg tablet 5 mg PO BID #60 tabs 05/28/25 11/07/25 11/07/25 09:00 Rx (Reglan) ondansetron HCl 4 mg tablet 4 mg PO Q8H PRN nausea and 06/18/25 11/07/25 11/07/25 11:00 Rx vomiting #30 tabs aspirin 81 mg tablet 81 mg PO DAILY 06/26/25 11/07/25 11/07/25 09:00 History folic acid 1 mg tablet 1 mg PO DAILY 06/26/25 11/07/25 11/07/25 09:00 History ascorbic acid (vitamin C) 500 mg 500 mg PO DAILY 09/24/25 11/07/25 11/07/25 09:00 History capsule,extended release ferrous sulfate 325 mg (65 mg 325 mg PO ONCE 09/24/25 11/07/25 11/07/25 09:00 History iron) capsule,extended release progesterone micronized 200 mg 400 mg PO DAILY 09/24/25 10/29/25 10/16/25 History capsule sucralfate 1 gram tablet 1 g PO BID #60 tabs 09/24/25 10/29/25 10/17/25 Rx Allergies Allergy/AdvReac Type Severity Reaction Status Date / Time amoxicillin Allergy Unknown ALGY-Anaphy Verified 11/07/25 21:55 laxis Penicillins Allergy Unknown ALGY-Anaphy Verified 11/07/25 21:55 laxis 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 PFSH: Medical History Anxiety Major depression Bipolar 1 disorder Borderline personality disorder ADHD (attention deficit hyperactivity disorder) evaluation Fracture of radial head, left, closed Surgical History Hx of tonsillectomy H/O adenoidectomy Family History Mother Diabetes Grandmother Diabetes Grandfather Diabetes Other Diabetes mellitus type 1 Denies family history of Colon cancer Ovarian cancer Heart disease Breast cancer Hypertension Uterine cancer Thyroid disease Stroke Social History Smoking and tobacco/nicotine status: never used tobacco/nicotine Other Female Reproductive History: Hx Age of Menarche: 9 History History History 4 Term 1 0 Miscarriages/Ectopic 2 Living Children 1 Past Pregnancies Del. Date GA/Weeks Outcome Route Wt Inf Gender Labor Lgth Comp. Anesthesia Location Unknown 10 spontaneous Unknown 11 spontaneous 05/14/24 40 live - full term Vaginal 6 lb 6 oz Male [facility] Delivery Date: Last Updated by: Paulina Camejo NP 2018 Delivery Date: Last Updated by: Paulina Camejo NP 2019 Care ZEUS Calculator Estimated Delivery Date Method Current WG Current Estimate 11/25/25 Ultrasound #1 37w 4d Other Estimates 11/13/25 LMP (Uncertain) 39w 2d # 2 Specific Issues/Plans MONO/DI TWIN --co managed with MFM SEVERE NAUSEA AND VOMITING IN Vitals/I&O/Wt Last Vital Signs Temp 98.1 F 11/08/25 04:00 Pulse 109 H 11/08/25 10:18 Resp 16 11/08/25 06:00 BP 120/69 11/08/25 10:18 Pulse Ox 98 11/08/25 00:11 O2 Del Method Room Air 11/08/25 03:14 Weight last 48 hrs Weight 195 lb Data 11/07/25 23:40 Results Labs OB ([facility]): Obstetrics US 06/17/25 Blood Type O Positive 11/07/25 Antibody Screen Negative 11/07/25 Hct, (36-47) 29.1 % L 11/07/25 Hgb, (11.27-16.99) 8.70 g/dL L 11/07/25 Rho(D) Type Rh positive 11/07/25 Plt Count, (157-399) 187 10^3/cmm 11/07/25 Hep Bs Antigen, (Nonreactive) Non-reactive 05/28/25 Hepatitis C Antibody, (Nonreactive) Non-reactive 05/28/25 Rubella IgG Antibody, (0.0-10.0) 86.5 IU/mL H 05/28/25 RPR, (Nonreactive) Nonreactive 05/28/25 HIV 1&2 Ab & HIV 1 Ag, (Non-Reactiv) Non-reactive 05/28/25 TSH, (0.27-4.20) 1.58 uIU/mL 05/28/25 Ser , Semi-Qnt 387558.00 mIU/mL 04/24/25 HCG, Qual, (Negative) Positive H 04/24/25 Urine Opiates Screen, (Negative) Negative ng/mL 05/28/25 Ur Barbiturates Screen, (Negative) Negative ng/mL 05/28/25 Ur Phencyclidine Scrn, (Negative) Negative ng/mL 05/28/25 Ur Amphetamines Screen, (Negative) Negative ng/mL 05/28/25 U Benzodiazepines Scrn, (Negative) Negative ng/mL 05/28/25 Urine Cocaine Screen, (Negative) Negative ng/mL 05/28/25 U Marijuana (THC) Screen, (Negative) Negative ng/mL 05/28/25 Micro Urine Specimen 05/28/25 Pap Smear Interpret See note 06/04/25 A&P PDMP PDMP Reviewed: Not Reviewed Attestations Medical Necessity Statement*: Twin in labor Coding Level of Care Code Acute Code for Chg Fwd
[2025-11-08] MEDS: oxytocin 30 UNIT/500 ML BAG IV (11:25)
--- NOTE | 2025-11-08 11:26 | P.PN_ITS ---
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 Subjective 2 Subjective: Interval history: Assessment: Twin gestation mono-di wo TTTS concerns, both vertex presentation, planned for vaginal delivery induction Bedside US Bedside ultrasound performed confirming: - Twin A: Vertex presentation, larger tw in - Twin B: Vertex presentation - Both twins with estimated weight s within 25th percentile - No significant size discordancy noted Pelvic Examination: - Dilation: 2-3 cm - Effacement: 80% - Station: -1 - Membranes: Intact Plan: Proceeding with planned induction of labor using pitocin protocol given favorable twin positioning (both vertex), appropriate size parameters, and favorable cervical status. Patient counseled regarding planned vaginal delivery for twin gestation. Will monitor maternal and status closely during induction process. Disposition: Admitted to Labor and Delivery for induction of labor Labor: Station: -2 Amniotic Membrane Status: Unknown Monitor Mode: External Contraction Pattern: Occasional Vitals/I&O/Wt Last Vital Signs Temp 98.1 F 11/08/25 04:00 Pulse 107 H 11/08/25 11:00 Resp 16 11/08/25 06:00 BP 116/78 11/08/25 11:00 Pulse Ox 98 11/08/25 00:11 O2 Del Method Room Air 11/08/25 03:14 Weight last 48 hrs Weight 195 lb Data 11/07/25 23:40 A&P PDMP PDMP Reviewed: Not Reviewed Attestations 2 Medical Necessity Statement*: Term twin with irregular contractions admitted for induction Coding Level of Care Code Acute Code for Chg Fwd
[2025-11-08] MEDS: ROPivacaine premix 200 MG/100 ML PREMIX 13 MG EPIDURAL ×2 (18:49→23:41)
--- NOTE | 2025-11-08 18:50 | ANES.PREANE2 ---
Pre-Anesthetic Assessment Height/Weight: Height 1.75 m Weight 88.451 kg Temp Pulse Resp BP Pulse Ox O2 Del Method 98.1 F 101 H 16 124/66 100 Room Air 11/08/25 04:00 11/08/25 18:43 11/08/25 06:00 11/08/25 18:43 11/08/25 18:40 11/08/25 03:14 Preop Diagnosis: IUP- twins Familial anesthetic complications: none Was Beta Tawnya taken within 24 hours: N/A Last intake: meal 929 liquids- current Social No alcohol and No tobacco Exam alert, No oriented x 3, No clear to auscultation bilaterally and No regular rate & rhythm Airway Submandibular: within normal limits Cervical ROM: within normal limits Mallampati: Class II Dentition: full Pulmonary None reported CV/HEM None reported None reported Hepatic None reported GI Gastroesophageal Reflux Disease Metabolic None reported Musc/skel None reported chronic dislocation of bilateral hips. Patient was in the middle of medical workup and PT when she became . Neuropsych None reported Anesthetic Plan ASA status: 2 Anesthesia: Regional (specify below) Other: Labor Epidural Medications/Allergies Home Medications ?Medication ?Instructions ?Recorded ?Confirmed ?Last Taken ?Type docosahexaenoic acid 200 mg 200 mg PO DAILY 10/26/23 11/07/25 11/07/25 09:00 History capsule ( DHA) famotidine 20 mg tablet (Pepcid) 20 mg PO BID #60 tabs 04/24/25 11/07/25 11/07/25 17:00 Rx metoclopramide HCl 5 mg tablet 5 mg PO BID #60 tabs 05/28/25 11/07/25 11/07/25 09:00 Rx (Reglan) ondansetron HCl 4 mg tablet 4 mg PO Q8H PRN nausea and 06/18/25 11/07/25 11/07/25 11:00 Rx vomiting #30 tabs aspirin 81 mg tablet 81 mg PO DAILY 06/26/25 11/07/25 11/07/25 09:00 History folic acid 1 mg tablet 1 mg PO DAILY 06/26/25 11/07/25 11/07/25 09:00 History ascorbic acid (vitamin C) 500 mg 500 mg PO DAILY 09/24/25 11/07/25 11/07/25 09:00 History capsule,extended release ferrous sulfate 325 mg (65 mg 325 mg PO ONCE 09/24/25 11/07/25 11/07/25 09:00 History iron) capsule,extended release progesterone micronized 200 mg 400 mg PO DAILY 09/24/25 10/29/25 10/16/25 History capsule sucralfate 1 gram tablet 1 g PO BID #60 tabs 09/24/25 10/29/25 10/17/25 Rx Allergies Allergy/AdvReac Type Severity Reaction Status Date / Time amoxicillin Allergy Unknown ALGY-Anaphy Verified 11/07/25 21:55 laxis Penicillins Allergy Unknown ALGY-Anaphy Verified 11/07/25 21:55 laxis Current Medications Generic Name Dose Route Start Last Admin Trade Name Freq PRN Reason Stop Dose Admin Dextrose/Lactated Ringer's 1,000 mls @ 125 mls/hr 11/08/25 03:15 11/08/25 13:40 Dextrose 5%-Lactated Ringers IV 125 mls/hr .Q8H PAMELA Administration Oxytocin 30 unit in 500 mls @ 1 mls/hr 11/08/25 10:00 11/08/25 18:10 Pitocin IV 11 milliunit/min .Q24H PAMELA 11 mls/hr Protocol Titration 1 MILLIUNIT/MIN Lactated Ringer's 1,000 mls @ 999 mls/hr 11/08/25 16:59 11/08/25 17:13 Lactated Ringers IV 999 mls/hr .Q1H1M PRN Administration See label comments PFSH Anesthesia Medical History Anxiety Major depression Bipolar 1 disorder Borderline personality disorder ADHD (attention deficit hyperactivity disorder) evaluation Fracture of radial head, left, closed Surgical History Hx of tonsillectomy H/O adenoidectomy Family History Mother Diabetes Grandmother Diabetes Grandfather Diabetes Other Diabetes mellitus type 1 Denies family history of Colon cancer Ovarian cancer Heart disease Breast cancer Hypertension Uterine cancer Thyroid disease Stroke Social History Smoking and tobacco/nicotine status: never used tobacco/nicotine Female Reproductive History : 5 Data Anesthesia 11/07/25 23:40 Short CBC 11/07/25 Range/Units 23:40 WBC 9.29 (3.29-11.43) 10^3/uL Hgb 8.70 L (11.27-16.99) g/dL Hct 29.1 L (36-47) % MCV 71.5 L (85-98) fl Plt Count 187 (157-399) 10^3/cmm Neut % (Auto) 65.4 % Neut # (Auto) 6.07 (1.8-7.7) 10^3/uL Blood Bank 11/07/25 23:40 Blood Type O Positive Rho(D) Type Rh positive Antibody Screen Negative Anesthesia Procedures Epidural Time Out Performed: Yes Consents Signed: Procedure Consent Consent: requested by attending/covering physician and from patient Epidural position: sitting Epidural procedure: sterile prep of area, 1% lidocaine to numb the area, negative for paresthesia passed, test dose given, 1.5% xylocaine 1:200k epi (5ml), 0.2% Ropivacaine bolus ml (5ml), placed PCEA, no systemic response, sterile dressing applied, L.U.D. no apparent complications and 0.2% Ropiavacaine @ mls/hr (13ml/hr) Additional Comments: ROMINA at 8cm on second attempt catheter threaded to 12cm. Test dose given with no systemic response epidural secured and patient connected to pump. Patient reported relief.
--- NOTE | 2025-11-08 22:38 | P.ANES_ITS ---
Anesthesia Procedures Procedure/Date: 11/08/25 VIDEO GAME ENGINEER called patient complaint of a unilateral block. Upon assessment VIDEO GAME ENGINEER identified the right leg and abdomen to be numb however the left leg and abdomen patient reported full feeling she also states that she can feel her catheter and vaginal area. Catheter pulled back to 10cm test dose repeated ( 1.5% lido with epi) 100 mcg Fentanyl given with 3ml 2% lidocaine given via epidural also. Will reassess patient status.
[2025-11-09] VITALS (47 sets, daily range): BP systolic 100–130; BP diastolic 55–83; PULSE 66–104; TEMP 36.1–36.7
[2025-11-09] MEDS: ROPivacaine premix 200 MG/100 ML PREMIX 13 MG EPIDURAL (06:52)
--- NOTE | 2025-11-09 12:51 | P.PCNOB_ITS ---
Delivery Note: Date of delivery: November 09, 2025 Pre-delivery diagnoses: mono-di twin at 37wks admitted in labor Post-delivery diagnoses: Same Procedure: of both baby A and B Delivering Physician: Alise Russell MD Estimated blood loss (mL): 350 Findings: Baby A-Boy ~6lbs 8/9 Baby B-Boy ~6lbs 8/9 Delivery: DELIVERY NOTE Patient Information: 20-year-old, 4, Para 1 Details: - Gestational Age: 37 weeks 0 days - Type: Monochorionic-diamniotic twin ge station - Course: (Uncomplicated/per pr enatal record) Labor and Delivery: - Onset of Labor: Spontaneous - Time of Delivery: ? - Delivery Interval: 5 minutes - Mode of Delivery: Spontaneous vaginal delivery/augmented, both vertex presentation Anesthesia/Analgesia:Epidural Cord Clampin seconds per ACOG guidelines Intrapartum Course: - Membranes: AROM 20min before delivery - Monitoring: [Continuous electronic fet al monitoring per protocol for twins] - Complications: None noted Infant Outcomes: Twin A: - Sex: Male - Weight: Approximately 6 pounds - Scores: 8 at 1 minute, 9 at 5 mi nutes - Resuscitation: None required - Pediatric Team: Present at delivery - Disposition: To nursery in sta ble condition Twin B: - Sex: Male? - Weight: Approximately 6 pounds - Scores: 8 at 1 minute, 9 at 5 mi nutes - Resuscitation: None required - Pediatric Team: Present at delivery - Disposition: To nursery in sta ble condition Placenta: - Number: Single (monochorionic) - Appearance: Complete/intact - Cord Vessels: Twin A: (3 vessels); Twi n B: (3 vessels) - Membranes: Diamniotic, complete Third Stage: - Placental Delivery: Spontaneous - Duration: Time from Twin B delivery to placental delivery, <10 min - Estimated Blood Loss: 350 mL Maternal Condition: Perineal/Vaginal Examination: - Second-degree perineal laceration iden tified - Repair Technique: Layered closure with 3-0 Vicryl suture (vaginal mucosa, perineal body, and skin) - Hemostasis: Adequate Assessment: - Uterine Tone: Firm - Fundal Height: Appropriate/at umbilicu s - Bleeding: Light lochia - Vital Signs: Stable - Hemodynamic Status: Stable, no signs o f hypovolemia Medications Administered: - Oxytocin: Dose and route - 10 units I V infusion per protocol Complications: None. No hemorrhage (EBL 350 mL, within normal limits for twin vaginal delivery). Plan: - Observation for standard mo nitoring - Hemorrhage risk assessment: Moderate ( twin delivery) - Perineal care instructions provided - Pain management - support offered History History History 4 Term 1 0 Miscarriages/Ectopic 2 Living Children 1 Past Pregnancies Del. Date GA/Weeks Outcome Route Wt Inf Gender Labor Lgth Comp. Anesth esia Location Unknown 10 spontaneous Unknown 11 spontaneous 05/14/24 40 live - full term Vaginal 6 lb 6 oz Male [facility] Delivery Date: Last Updated by: Paulina Camejo NP 2018 Delivery Date: Last Updated by: Paulina Camejo NP 2019 A&P PDMP PDMP Reviewed: Not Reviewed Coding Level of Care Code Acute Code for Chg Fwd
[2025-11-09] MEDS: oxytocin 30 UNIT/500 ML BAG 65 UNIT IV (13:12)
[2025-11-09] MEDS: benzocaine-menthol 78 gm Canister 1 SPRAY TOPICAL (14:42)
[2025-11-10 00:37] LABS: Hematocrit 25.9 % (36-47); Hemoglobin 7.80 g/dL (11.27-16.99); Mean Corpuscular HGB Conc 30.1 g/dL (30-55); Mean Corpuscular Hemoglobin 21.6 pg (27-33); Mean Corpuscular Volume 71.7 fl (85-98); Platelet Count 178 10^3/cmm (157-399); Red Blood Count 3.61 10^6/uL (3.85-5.65); White Blood Count 11.97 10^3/uL (3.29-11.43)
[2025-11-10 04:48] VITALS: BP 111/67; PULSE 68; TEMP 36.5
[2025-11-10] MEDS: PRENATAL VIT NO.130/IRON/FOLIC 1 EACH TABLET PO (04:57)
--- NOTE | 2025-11-10 08:00 | ANE.PACU2 ---
Inpatient post-anesthesia follow up: Airway intact: Yes Vital signs: Temperature 97.7 F Pulse Rate 106 Respiratory Rate 16 Blood Pressure 121/63 Pulse Oximetry 98 Oxygen Delivery Me thod Room Air Oxygen Flow Rate Fraction of Inspir ed Oxygen Hydration adequate: Yes Nausea and vomiting: No Pain level: 1 Mental status: Baseline Epidural Start/End: Epidural Start Date: 11/08/25 Epidural Start Time: 18:12 Epidural End Date: 11/09/25 Epidural End Time: 13:00
[2025-11-10 09:04] VITALS: BP 112/76; PULSE 71
[2025-11-10 15:45] VITALS: BP 124/68; PULSE 76
[2025-11-10 21:30] VITALS: BP 115/63; PULSE 67; RESP 16; TEMP 36.3; O2SAT 99
[2025-11-11 04:58] VITALS: BP 110/59; PULSE 67; RESP 15; TEMP 36.3; O2SAT 98; O2SAT 99
[2025-11-11] MEDS: PRENATAL VIT NO.130/IRON/FOLIC 1 EACH TABLET PO (05:00)
--- NOTE | 2025-11-11 09:28 | PM.OBGYDC ---
Discharge Providers REFINERY OPERATOR Date of Admission: 11/08/25 04:09 Date of Discharge: 11/11/25 Attending Provider at Admission: Morro Carrero MD Attending Provider at Discharge: Morro Carrero MD Primary Care Provider: Elina Mtz APN Diagnoses at Discharge Discharge Diagnosis 1. Monochorionic diamniotic twin , antepartum: 2. (normal spontaneous vaginal delivery): 3. Anemia affecting in third trimester: 4. Anemia, : Reason for Visit Reason for Visit: Twin mono-di in labor at term Brief History: 20-year-old [id number] patient with LMP of 02/06/25. ZEUS of 11/25/25, based on 13 week U/S, at 37 weeks 4 days with monochorionic diamniotic twin Chief Complaint: Pelvic pain and rhythmic contractions History of Present Illness: Patient initially admitted for observation with complaint of pelvic pain and regular contractions. Contractions subsequently became irregular with no significant change in cervical dilation, remaining at approximately 3 cm. Given decreased intensity and regularity of contractions, patient was offered discharge with plan to return Monday for scheduled induction. Patient elected to proceed with induction. Delivered with augmentation wo complications VX/VX. DH today. Obstetric History: - Monochorionic diamniotic twin at 37 weeks 4 days gestation - Followed by [facility]HA[facility] St[facility], most recent evaluation within last 2 weeks - Twin A: Estimated weight 4 pounds 5 ounces, vertex presentation - Twin B: Estimated weight 4 pounds 15 ounces, non-vertex presentation - Growth discordance 25% (Twin B larger) - GBS negative - Followed in office by Dr. Collins Medical History: - -related anemia - Hemoglobin 8.8 g/dL on last check, 8.7 g/dL today - Previously recommended for iron infusions Allergies: Amoxicillin, Penicillin Hospital Course Hospital Course Recovered wo issues Information Peripartum Data: Delivery Method: Vaginal (X2) Laceration description: Perineal - 2nd Degree complications: none Physical Exam Const: COMMON NORMALS: no acute distress and patient oriented x3 GENERAL APPEARANCE: cooperative ORIENTATION/CONSCIOUSNESS: Yes awake Chest: COMMONS NORMALS: normal inspection of the chest Resp: COMMON NORMALS: normal respiratory effort Cardio: COMMON NORMALS: regular rate and regular rhythm RATE: regular rate RHYTHM: regular rhythm GI: COMMON NORMALS: Soft to palpation AUSCULTATION: Yes normoactive bowel sounds PALPATION: Yes Soft to palpation : COMMON NORMALS: Yes normal external appearance OB/EXTERNAL & SPECULUM: Deferred OB/external & speculum exam MANUAL OB EXAM: Deferred manual OB exam UTERUS PALPATION: Yes Other OB uterine findings (firm) Neuro: COMMON NORMALS: patient oriented x3 Urinary Catheter Management: Patel Latex: Cath Placed During This Visit: yes, but has since been removed by the nurse Reason for Continuing Indwelling Catheter: Decision to DC Catheter Urinary Catheter Date of Insertion: 11/08/25 Urinary Catheter Time of Insertion: 19:31 Date Urinary Catheter Removed: 11/09/25 Time Urinary Catheter Discontinued: 12:07 History History History 4 Term 1 0 Miscarriages/Ectopic 2 Living Children 1 Past Pregnancies Del. Date GA/Weeks Outcome Route Wt Inf Gender Labor Lgth Comp. Anesthesia Location Unknown 10 spontaneous Unknown 11 spontaneous 05/14/24 40 live - full term Vaginal 6 lb 6 oz Male [facility] Delivery Date: Last Updated by: Paulina Camejo NP 2018 Delivery Date: Last Updated by: Paulina Camejo NP 2019 Discharge Data Studies Completed and Pending Completed Studies During Hospitalization Category Date Time Status US OB limited twins [id number] Stat Ultrasound 11/08/25 10:11 Completed Pending at discharge Category Date Time Status High Risk PP Hemorrhage Stat Lab 11/09/25 16:28 Received Radiology Impressions Obstetrics Ultrasound 11/08/25 10:11 IMPRESSION: Twin intrauterine gestation combined measurements of 35 weeks 3 days. Fetus designated baby B is small for gestational age. Laboratory Results WBC 11.97 10^3/uL (3.29-11.43) H 11/10/25 00:16 RBC 3.61 10^6/uL (3.85-5.65) L 11/10/25 00:16 Hgb 7.80 g/dL (11.27-16.99) L 11/10/25 00:16 Hct 25.9 % (36-47) L 11/10/25 00:16 MCV 71.7 fl (85-98) L 11/10/25 00:16 MCH 21.6 pg (27-33) L 11/10/25 00:16 MCHC 30.1 g/dL (30-55) 11/10/25 00:16 RDW 16.5 % (12.1-15.1) H 11/10/25 00:16 Plt Count 178 10^3/cmm (157-399) 11/10/25 00:16 MPV 12.1 fL (7.4-10.4) H 11/10/25 00:16 Neut % (Auto) 65.4 % 11/07/25 23:40 Lymph % (Auto) 24.1 % 11/07/25 23:40 [place] % (Auto) 8.4 % 11/07/25 23:40 Eos % (Auto) 1.3 % 11/07/25 23:40 Baso % (Auto) 0.3 % 11/07/25 23:40 Neut # (Auto) 6.07 10^3/uL (1.8-7.7) 11/07/25 23:40 Lymph # (Auto) 2.2 10^3/uL (0.8-4.8) 11/07/25 23:40 [place] # (Auto) 0.8 10^3/uL (0.2-0.9) 11/07/25 23:40 Eos # (Auto) 0.1 10^3/uL (0.0-0.8) 11/07/25 23:40 Baso # (Auto) 0.0 10^3/uL (0.0-0.1) 11/07/25 23:40 Nucleated RBC % (auto) 0 % 11/07/25 23:40 Nucleated RBCs # 0.0 /100WBC 11/07/25 23:40 Insulin-like GF I Negative 11/07/25 21:40 Blood Type O Positive 11/07/25 23:40 Rho(D) Type Rh positive 11/07/25 23:40 Antibody Screen Negative 11/07/25 23:40 Vitals Last Vital Signs Temp 97.4 F L 11/11/25 04:58 Pulse 67 11/11/25 04:58 Resp 15 11/11/25 04:58 BP 110/59 11/11/25 04:58 Pulse Ox 99 11/11/25 04:58 O2 Del Method Room Air 11/11/25 04:58 Results Labs OB ([facility]): Obstetrics US 11/08/25 Blood Type O Positive 11/07/25 Antibody Screen Negative 11/07/25 Hct, (36-47) 25.9 % L 11/10/25 Hgb, (11.27-16.99) 7.80 g/dL L 11/10/25 Rho(D) Type Rh positive 11/07/25 Plt Count, (157-399) 178 10^3/cmm 11/10/25 Hep Bs Antigen, (Nonreactive) Non-reactive 05/28/25 Hepatitis C Antibody, (Nonreactive) Non-reactive 05/28/25 Rubella IgG Antibody, (0.0-10.0) 86.5 IU/mL H 05/28/25 RPR, (Nonreactive) Nonreactive 05/28/25 HIV 1&2 Ab & HIV 1 Ag, (Non-Reactiv) Non-reactive 05/28/25 TSH, (0.27-4.20) 1.58 uIU/mL 05/28/25 Ser , Semi-Qnt 012273.00 mIU/mL 04/24/25 HCG, Qual, (Negative) Positive H 04/24/25 Urine Opiates Screen, (Negative) Negative ng/mL 05/28/25 Ur Barbiturates Screen, (Negative) Negative ng/mL 05/28/25 Ur Phencyclidine Scrn, (Negative) Negative ng/mL 05/28/25 Ur Amphetamines Screen, (Negative) Negative ng/mL 05/28/25 U Benzodiazepines Scrn, (Negative) Negative ng/mL 05/28/25 Urine Cocaine Screen, (Negative) Negative ng/mL 05/28/25 U Marijuana (THC) Screen, (Negative) Negative ng/mL 05/28/25 Micro Urine Specimen 05/28/25 Pap Smear Interpret See note 06/04/25 Discharge Plan Discharge Patient Disposition: Home Condition: Stable Prescriptions: No Action DHA 200 mg capsule 200 mg PO DAILY folic acid 1 mg tablet 1 mg PO DAILY aspirin 81 mg tablet 81 mg PO DAILY progesterone micronized 200 mg capsule 400 mg PO DAILY ascorbic acid (vitamin C) 500 mg capsule, extended release 500 mg PO DAILY ferrous sulfate 325 mg (65 mg iron) capsule, extended release 325 mg PO ONCE sucralfate 1 gram tablet 1 g PO BID Qty: 60 2RF famotidine [Pepcid] 20 mg tablet 20 mg PO BID Qty: 60 2RF metoclopramide HCl [Reglan] 5 mg tablet 5 mg PO BID Qty: 60 2RF Rx Instructions: take once daily ondansetron HCl 4 mg tablet 4 mg PO Q8H PRN (Reason: nausea and vomiting) Qty: 30 0RF Discharge Order = DC NOW: Discharge Order (Routine); Ordered 11/11/25 Ordered By: Morro Carrero Referrals: Morro Carrero MD [Physician, REFINERY OPERATOR] - 12/29/25 1:45 pm Patient Instructions: Depression (DC), Twins (DC), Opioid Safety (DC), Preeclampsia and Eclampsia After Delivery (GEN), Hemorrhage (DC), OB Discharge Report, OB Food/Drug Interaction Guide, Opioid Safety, OB Home Care, OB Vaginal Deliveries - [facility], Patient Portal & [facility] Instructions, Abnormal Bleeding Discharge Attestations REFINERY OPERATOR Time Spent in Discharge Care*: greater than 30 min Coding Level of Care Code Acute Code for Chg Fwd Diagnoses Monochorionic diamniotic twin , antepartum O30.039 Multiple gestation type: monochorionic and diamniotic Trimester: unspecified trimester (normal spontaneous vaginal delivery) O80 Anemia affecting in third trimester O99.013 Trimester: third trimester Anemia, O90.81
--- NOTE | 2025-11-11 09:41 | P.PN_ITS ---
Subjective 2 Subjective: DAY 1 NOTE 11/10 Subjective: Patient reports feeling well, tolerating regular diet, ambulating independently. No excessive bleeding, headaches, or abdominal pain. Objective: Vital Signs: Stable and within normal limits General: Alert, ambulatory, no acute distress Cardiovascular: Regular rate and rhythm Abdomen: Soft, fundus firm at umbilicus, non-tender Lochia: Rubra, moderate flow, normal Perineum: Intact, no lacerations Extremities: No edema, ambulating well Assessment: day 1 following uncomplicated term vaginal delivery of monochorionic-diamniotic twins, vertex/vertex presentation. Patient recovering well. Plan: - Continue ambulation and early mobiliza tion to prevent thrombosis - Monitor vital signs and lochia - Assess and provide lacta tion support - Pain management as needed - Continue care education - Monitor for warning signs: heavy bleed ing, fever, signs of infection - Plan discharge day 2-3 if c ontinues to progress well Vitals/I&O/Wt Last Vital Signs Temp 97.4 F L 11/11/25 04:58 Pulse 67 11/11/25 04:58 Resp 15 11/11/25 04:58 BP 110/59 11/11/25 04:58 Pulse Ox 99 11/11/25 04:58 O2 Del Method Room Air 11/11/25 04:58 Physical Exam 2 Urinary Catheter Management: Patel Latex: Cath Placed During This Visit: yes, but has since been removed by the nurse Reason for Continuing Indwelling Catheter: Decision to DC Catheter Urinary Catheter Date of Insertion: 11/08/25 Urinary Catheter Time of Insertion: 19:31 Date Urinary Catheter Removed: 11/09/25 Time Urinary Catheter Discontinued: 12:07 Data 11/10/25 00:16 A&P PDMP PDMP Reviewed: Not Reviewed Attestations 2 Medical Necessity Statement*: Recovering from twin delivery Coding Level of Care Code Acute Code for Chg Fwd
--- NOTE | 2025-11-11 09:49 | P.PN_ITS ---
Subjective 2 Subjective: DAY 2 NOTE 11/11 Subjective: Patient continues to feel well, tolerating regular diet without difficulty. Ambulating independently without assistance. Voiding spontaneously. Reports normal lochia. twins improving with support. No complaints of pain, headache, fever, or excessive bleeding. Objective: Vital Signs: Stable and within normal limits General: Alert, well-appearing, ambulatory Cardiovascular: Regular rate and rhythm Abdomen: Soft, fundus firm below umbilicus, non-tender Lochia: Rubra to serosa, moderate flow, normal Perineum: No swelling, no signs of infection Breasts: Soft, no erythema or tenderness Extremities: No calf tenderness or edema Voiding: Spontaneously without difficulty Assessment: day 2 following uncomplicated term vaginal delivery of monochorionic-diamniotic twins. Normal course. Mother and infants doing well. Plan: - Discharge home today with normal postp artum recovery - Discharge instructions: - Pelvic rest for 6 weeks (no intercourse, tampons, or douching) - Resume normal activities as tolerated, avoid heavy lifting - Continue vitamins/iron supplementation as needed - Follow-up: visit in 2 weeks - Warning signs reviewed: Heavy bleeding (soaking >1 pad/hour), fever >100.4?F, severe abdominal pain, foul-smelling discharge, chest pain, shortness of breath, severe headache, vision changes, leg pain/swelling, difficulty urinating, signs of depression - Infant care: Both twins discharged delvin e with mother today. Pediatric follow-up arranged with crystallography teacher - support: Resources provided for continued support as needed - Patient verbalizes understanding of josh ackerman instructions and warning signs Vitals/I&O/Wt Last Vital Signs Temp 97.4 F L 11/11/25 04:58 Pulse 67 11/11/25 04:58 Resp 15 11/11/25 04:58 BP 110/59 11/11/25 04:58 Pulse Ox 99 11/11/25 04:58 O2 Del Method Room Air 11/11/25 04:58 Physical Exam 2 Urinary Catheter Management: Patel Latex: Cath Placed During This Visit: yes, but has since been removed by the nurse Reason for Continuing Indwelling Catheter: Decision to DC Catheter Urinary Catheter Date of Insertion: 11/08/25 Urinary Catheter Time of Insertion: 19:31 Date Urinary Catheter Removed: 11/09/25 Time Urinary Catheter Discontinued: 12:07 Data 11/10/25 00:16 A&P PDMP PDMP Reviewed: Not Reviewed Attestations 2 Medical Necessity Statement*: PP recovery of twin delivery Coding Level of Care Code Acute Code for Chg Fwd
[2025-11-11 12:46] VITALS: BP 121/63; PULSE 106
[2025-11-11 13:50] VITALS: BP 121/63; PULSE 106; RESP 16; TEMP 36.5; O2SAT 98
[2025-11-11 14:08] LABS: High Risk PP Hemorrhage BBK Notified
== END 2025-11-11 12:45 | disposition home or self-care (01) | DRG 560 ==
LOC: OPOB 04:10 → OBGYN 04:10
PROVIDERS: Admitting Provider Obstetrics & Gynecology; PCP Nurse Practitioner Family; Visit Provider Obstetrics & Gynecology
DX: O30.033 Twin pregnancy, monochorionic/diamniotic, third trimester (principal); O99.02 Anemia complicating childbirth; D64.9 Anemia, unspecified; O99.62 Diseases of the digestive system complicating childbirth; O70.1 Second degree perineal laceration during delivery; Z3A.37 37 weeks gestation of pregnancy; Z37.2 Twins, both liveborn; K21.9 Gastro-esophageal reflux disease without esophagitis; Z88.1 Allergy status to other antibiotic agents; Z88.0 Allergy status to penicillin
CPT/HCPCS: 36415; 51702; 59025; 59409; 76815; 83986; 84112; 85025; 85027; 86850; 86900; 99211; J2590; J2795; J3010; J7120; J7121; J9999

== ENCOUNTER 2025-11-12 04:48 | Emergency (ER) | payer MEDICAID, SELFPAY ==
[2025-11-12 04:49] VITALS: BP 128/84; PULSE 71; RESP 17; TEMP 36.8; O2SAT 100
--- NOTE | 2025-11-12 04:50 | W.ED.GENADLT ---
Documented by User: Norma Webster MD 11/12/25 19:53 HPI - General Adult General: Chief complaint: Vaginal Bleeding Stated complaint: Bleeding Time Seen by Provider: 11/12/25 04:49 History of Present Illness: 20yo F patient s/p delivering twin baby boys on 11/06/2025 w/cc of vaginal bleeding. She was discharged around 15:00 yesterday. She states discharge has turned yellow but prior to coming to the emergency department, she felt a gush of blood and saturated an adult diaper. Patient states she then went to the toilet and noted bleeding and several large clots. She reports continued bleeding, low abdomen cramping. She denies fever since discharge. Patient denies shortness of breath or chest pain. No vomiting but she's feeling nauseated. During delivery, she denies prolonged labor and reports a grade 2 tear. Related Data Home Medications ?Medication ?Instructions ?Recorded ?Confirmed docosahexaenoic acid 200 mg 200 mg PO DAILY 10/26/23 11/11/25 capsule ( DHA) aspirin 81 mg tablet 81 mg PO DAILY 06/26/25 11/11/25 folic acid 1 mg tablet 1 mg PO DAILY 06/26/25 11/11/25 ascorbic acid (vitamin C) 500 mg 500 mg PO DAILY 09/24/25 11/11/25 capsule,extended release ferrous sulfate 325 mg (65 mg 325 mg PO ONCE 09/24/25 11/11/25 iron) capsule,extended release progesterone micronized 200 mg 400 mg PO DAILY 09/24/25 11/11/25 capsule Previous Rx's ?Medication ?Instructions ?Recorded famotidine 20 mg tablet (Pepcid) 20 mg PO BID #60 tabs 04/24/25 metoclopramide HCl 5 mg tablet 5 mg PO BID #60 tabs 05/28/25 (Reglan) ondansetron HCl 4 mg tablet 4 mg PO Q8H PRN nausea and 06/18/25 vomiting #30 tabs sucralfate 1 gram tablet 1 g PO BID #60 tabs 09/24/25 Allergies Allergy/AdvReac Type Severity Reaction Status Date / Time amoxicillin Allergy Unknown ALGY-Anaphy Verified 11/07/25 21:55 laxis Penicillins Allergy Unknown ALGY-Anaphy Verified 11/07/25 21:55 laxis PFSH ED PFSH: Medical History (Updated 11/12/25 @ 06:30 by Max Arevalo MD) Anxiety Major depression Bipolar 1 disorder Borderline personality disorder ADHD (attention deficit hyperactivity disorder) evaluation Fracture of radial head, left, closed Surgical History Hx of tonsillectomy H/O adenoidectomy Family History Mother Diabetes Grandmother Diabetes Grandfather Diabetes Other Diabetes mellitus type 1 Denies family history of Colon cancer Ovarian cancer Heart disease Breast cancer Hypertension Uterine cancer Thyroid disease Stroke Social History Smoking and tobacco/nicotine status: never used tobacco/nicotine Physical Exam Narrative: EXAM NARRATIVE: Vital signs were reviewed. Patient is alert and oriented. Patient is breathing comfortably, no increased WOB or accessory muscle use. SpO2 is above 95% on RA. Patient has clear lungs b/l, no rhonchi, wheezing or crackles. No hypotension or tachycardia. Abdomen is soft, nondistended. She has low abd tenderness. Patient is moving all extremities, no deformity or gross injury. No lower extremity edema or asymmetry. Course Vital Signs: Vital signs: Vital Signs Temperature 98.2 F 11/12/25 04:49 Pulse Rate 67 11/12/25 07:01 Respiratory Rate 15 11/12/25 04:58 Blood Pressure 115/69 11/12/25 07:01 Pulse Oximetry 99 11/12/25 07:01 Oxygen Delivery Me thod Room Air 11/12/25 04:49 MDM - General Adult Medical Decision Making 20yo F w/cc of bleeding. Ddx includes, but is not limited to, uterine atony, bleeding due to laceration/trauma, infection, retained products of conception, hemorrhagic shock, other. On exam, she's HDS. External uterine massage performed. On external exam, there is bleeding noted from the introitus. Consulted w/Dr. Collins, recommended methergine which was given. Patient was also given IV morphine and Zofran. She was evaluate CBC, CMP, coagulation, type and screen. Patient has a normal white blood cell count. Patient is anemic, H/H is 7.5/23.3 which is relatively stable from previous. Patient does not have any actionable electrolyte abnormalities and she has normal kidney function. LFTs wnl. Final evaluation is pending recommendations per director of infection control. Care signed out to Dr. Arevalo pending reassessment and director of infection control consult. Lab Data 11/12/25 05:00 11/12/25 05:00 Laboratory Results WBC 10.44 10^3/uL (3.29-11.43) 11/12/25 05:00 RBC 3.52 10^6/uL (3.85-5.65) L 11/12/25 05:00 Hgb 7.50 g/dL (11.27-16.99) L 11/12/25 05:00 Hct 26.3 % (36-47) L 11/12/25 05:00 MCV 74.7 fl (85-98) L 11/12/25 05:00 MCH 21.3 pg (27-33) L 11/12/25 05:00 MCHC 28.5 g/dL (30-55) L 11/12/25 05:00 RDW 16.9 % (12.1-15.1) H 11/12/25 05:00 Plt Count 200 10^3/cmm (157-399) 11/12/25 05:00 Plt Count 200 10^3/cmm (157-399) 11/12/25 05:00 MPV 11.0 fL (7.4-10.4) H 11/12/25 05:00 Neut % (Auto) 67.9 % 11/12/25 05:00 Lymph % (Auto) 21.7 % 11/12/25 05:00 [place] % (Auto) 6.2 % 11/12/25 05:00 Eos % (Auto) 2.9 % 11/12/25 05:00 Baso % (Auto) 0.5 % 11/12/25 05:00 Neut # (Auto) 7.09 10^3/uL (1.8-7.7) 11/12/25 05:00 Lymph # (Auto) 2.3 10^3/uL (0.8-4.8) 11/12/25 05:00 [place] # (Auto) 0.7 10^3/uL (0.2-0.9) 11/12/25 05:00 Eos # (Auto) 0.3 10^3/uL (0.0-0.8) 11/12/25 05:00 Baso # (Auto) 0.1 10^3/uL (0.0-0.1) 11/12/25 05:00 Nucleated RBC % (auto) 0 % 11/12/25 05:00 Nucleated RBCs # 0.0 /100WBC 11/12/25 05:00 PT 12.40 SECONDS (12.1-14.9) 11/12/25 05:00 INR 0.86 (0.8-1.2) 11/12/25 05:00 APTT 25.7 SECONDS (23.9-36.7) 11/12/25 05:00 Fibrinogen 390 mg/dL (174-498) 11/12/25 05:00 D-Dimer 3.24 ug/mLFEU (0-0.59) H 11/12/25 05:00 Sodium 139 mmol/L (136-145) 11/12/25 05:00 Potassium 3.9 mmol/L (3.5-5.1) 11/12/25 05:00 Chloride 106 mmol/L (98-107) 11/12/25 05:00 Carbon Dioxide 23 mmol/L (22-29) 11/12/25 05:00 Anion Gap 13.9 (5-19) 11/12/25 05:00 BUN 7 mg/dL (6-20) 11/12/25 05:00 Creatinine 0.5 mg/dL (0.5-0.9) 11/12/25 05:00 GFR Calculation 154.3 mL/min (90-130) H 11/12/25 05:00 Glucose 88 mg/dL (65-115) 11/12/25 05:00 Calculated Osmolality 285 mOsm/kg (285-295) 11/12/25 05:00 Calcium 8.0 mg/dL (8.5-10.5) L 11/12/25 05:00 Total Bilirubin 0.3 mg/dL (0.15-1.2) 11/12/25 05:00 AST 27 U/L (0-32) 11/12/25 05:00 ALT 8 U/L (0-33) 11/12/25 05:00 Alkaline Phosphatase 146 U/L (35-105) H 11/12/25 05:00 Total Protein 5.2 g/dL (6.6-8.7) L 11/12/25 05:00 Albumin 2.7 g/dL (3.5-5.2) L 11/12/25 05:00 Globulin 2.5 g/dL (1.3-4.6) 11/12/25 05:00 Blood Type O Positive 11/12/25 05:00 Rho(D) Type Rh positive 11/12/25 05:00 Antibody Screen Negative 11/12/25 05:00 No radiology studies performed this visit Discharge Plan Discharge Patient Disposition: Home Clinical Impression: Vaginal bleeding Condition: Stable Prescriptions: No Action DHA 200 mg capsule 200 mg PO DAILY folic acid 1 mg tablet 1 mg PO DAILY aspirin 81 mg tablet 81 mg PO DAILY progesterone micronized 200 mg capsule 400 mg PO DAILY ascorbic acid (vitamin C) 500 mg capsule, extended release 500 mg PO DAILY ferrous sulfate 325 mg (65 mg iron) capsule, extended release 325 mg PO ONCE sucralfate 1 gram tablet 1 g PO BID Qty: 60 2RF famotidine [Pepcid] 20 mg tablet 20 mg PO BID Qty: 60 2RF metoclopramide HCl [Reglan] 5 mg tablet 5 mg PO BID Qty: 60 2RF Rx Instructions: take once daily ondansetron HCl 4 mg tablet 4 mg PO Q8H PRN (Reason: nausea and vomiting) Qty: 30 0RF Discharge Orders: Discharge ED (Routine); Ordered 11/12/25 Ordered By: Max Arevalo Referrals: Elina Mtz APN [Primary Care Provider, Family Practice] Discharge Diet: Advance as tolerated Discharge Activity: Resume usual activity Patient Instructions: Bleeding (ED) Print Language: Kyrgyz Coding Level of Care Code ED Draw Operator for Chg Fwd Documented by User: Max Arevalo MD 11/12/25 06:37 HPI - General Adult General: Chief complaint: Vaginal Bleeding Stated complaint: Bleeding Time Seen by Provider: 11/12/25 04:49 Related Data Home Medications ?Medication ?Instructions ?Recorded ?Confirmed docosahexaenoic acid 200 mg 200 mg PO DAILY 10/26/23 11/11/25 capsule ( DHA) aspirin 81 mg tablet 81 mg PO DAILY 06/26/25 11/11/25 folic acid 1 mg tablet 1 mg PO DAILY 06/26/25 11/11/25 ascorbic acid (vitamin C) 500 mg 500 mg PO DAILY 09/24/25 11/11/25 capsule,extended release ferrous sulfate 325 mg (65 mg 325 mg PO ONCE 09/24/25 11/11/25 iron) capsule,extended release progesterone micronized 200 mg 400 mg PO DAILY 09/24/25 11/11/25 capsule Previous Rx's ?Medication ?Instructions ?Recorded famotidine 20 mg tablet (Pepcid) 20 mg PO BID #60 tabs 04/24/25 metoclopramide HCl 5 mg tablet 5 mg PO BID #60 tabs 05/28/25 (Reglan) ondansetron HCl 4 mg tablet 4 mg PO Q8H PRN nausea and 06/18/25 vomiting #30 tabs sucralfate 1 gram tablet 1 g PO BID #60 tabs 09/24/25 Allergies Allergy/AdvReac Type Severity Reaction Status Date / Time amoxicillin Allergy Unknown ALGY-Anaphy Verified 11/07/25 21:55 laxis Penicillins Allergy Unknown ALGY-Anaphy Verified 11/07/25 21:55 laxis PFSH ED PFSH: Medical History (Updated 11/12/25 @ 06:30 by Max Arevalo MD) Anxiety Major depression Bipolar 1 disorder Borderline personality disorder ADHD (attention deficit hyperactivity disorder) evaluation Fracture of radial head, left, closed Surgical History Hx of tonsillectomy H/O adenoidectomy Family History Mother Diabetes Grandmother Diabetes Grandfather Diabetes Other Diabetes mellitus type 1 Denies family history of Colon cancer Ovarian cancer Heart disease Breast cancer Hypertension Uterine cancer Thyroid disease Stroke Social History (Reviewed 10/29/25 @ 08:48 by JESUS Casiano Smoking and tobacco/nicotine status: never used tobacco/nicotine Course Vital Signs: Vital signs: Vital Signs Temperature 98.2 F 11/12/25 04:49 Pulse Rate 67 11/12/25 07:01 Respiratory Rate 15 11/12/25 04:58 Blood Pressure 115/69 11/12/25 07:01 Pulse Oximetry 99 11/12/25 07:01 Oxygen Delivery Me thod Room Air 11/12/25 04:49 MDM - General Adult Medical Decision Making 20yo F w/cc of bleeding. Ddx includes, but is not limited to, uterine atony, bleeding due to laceration/trauma, infection, retained products of conception, hemorrhagic shock, other. On exam, she's HDS. External uterine massage performed. On external exam, there is bleeding noted from the introitus. Consulted w/Dr. Collins, recommended methergine which was given. Patient was also given IV morphine and Zofran. She was evaluate CBC, CMP, coagulation, type and screen. Patient has a normal white blood cell count. Patient is anemic, H/H is 7.5/23.3 which is relatively stable from previous. Patient does not have any actionable electrolyte abnormalities and she has normal kidney function. LFTs wnl. Lab Data 11/12/25 05:00 11/12/25 05:00 Laboratory Results WBC 10.44 10^3/uL (3.29-11.43) 11/12/25 05:00 RBC 3.52 10^6/uL (3.85-5.65) L 11/12/25 05:00 Hgb 7.50 g/dL (11.27-16.99) L 11/12/25 05:00 Hct 26.3 % (36-47) L 11/12/25 05:00 MCV 74.7 fl (85-98) L 11/12/25 05:00 MCH 21.3 pg (27-33) L 11/12/25 05:00 MCHC 28.5 g/dL (30-55) L 11/12/25 05:00 RDW 16.9 % (12.1-15.1) H 11/12/25 05:00 Plt Count 200 10^3/cmm (157-399) 11/12/25 05:00 Plt Count 200 10^3/cmm (157-399) 11/12/25 05:00 MPV 11.0 fL (7.4-10.4) H 11/12/25 05:00 Neut % (Auto) 67.9 % 11/12/25 05:00 Lymph % (Auto) 21.7 % 11/12/25 05:00 [place] % (Auto) 6.2 % 11/12/25 05:00 Eos % (Auto) 2.9 % 11/12/25 05:00 Baso % (Auto) 0.5 % 11/12/25 05:00 Neut # (Auto) 7.09 10^3/uL (1.8-7.7) 11/12/25 05:00 Lymph # (Auto) 2.3 10^3/uL (0.8-4.8) 11/12/25 05:00 [place] # (Auto) 0.7 10^3/uL (0.2-0.9) 11/12/25 05:00 Eos # (Auto) 0.3 10^3/uL (0.0-0.8) 11/12/25 05:00 Baso # (Auto) 0.1 10^3/uL (0.0-0.1) 11/12/25 05:00 Nucleated RBC % (auto) 0 % 11/12/25 05:00 Nucleated RBCs # 0.0 /100WBC 11/12/25 05:00 PT 12.40 SECONDS (12.1-14.9) 11/12/25 05:00 INR 0.86 (0.8-1.2) 11/12/25 05:00 APTT 25.7 SECONDS (23.9-36.7) 11/12/25 05:00 Fibrinogen 390 mg/dL (174-498) 11/12/25 05:00 D-Dimer 3.24 ug/mLFEU (0-0.59) H 11/12/25 05:00 Sodium 139 mmol/L (136-145) 11/12/25 05:00 Potassium 3.9 mmol/L (3.5-5.1) 11/12/25 05:00 Chloride 106 mmol/L (98-107) 11/12/25 05:00 Carbon Dioxide 23 mmol/L (22-29) 11/12/25 05:00 Anion Gap 13.9 (5-19) 11/12/25 05:00 BUN 7 mg/dL (6-20) 11/12/25 05:00 Creatinine 0.5 mg/dL (0.5-0.9) 11/12/25 05:00 GFR Calculation 154.3 mL/min (90-130) H 11/12/25 05:00 Glucose 88 mg/dL (65-115) 11/12/25 05:00 Calculated Osmolality 285 mOsm/kg (285-295) 11/12/25 05:00 Calcium 8.0 mg/dL (8.5-10.5) L 11/12/25 05:00 Total Bilirubin 0.3 mg/dL (0.15-1.2) 11/12/25 05:00 AST 27 U/L (0-32) 11/12/25 05:00 ALT 8 U/L (0-33) 11/12/25 05:00 Alkaline Phosphatase 146 U/L (35-105) H 11/12/25 05:00 Total Protein 5.2 g/dL (6.6-8.7) L 11/12/25 05:00 Albumin 2.7 g/dL (3.5-5.2) L 11/12/25 05:00 Globulin 2.5 g/dL (1.3-4.6) 11/12/25 05:00 Blood Type O Positive 11/12/25 05:00 Rho(D) Type Rh positive 11/12/25 05:00 Antibody Screen Negative 11/12/25 05:00 Discharge Plan Discharge Patient Disposition: Home Clinical Impression: Vaginal bleeding Condition: Stable Prescriptions: No Action DHA 200 mg capsule 200 mg PO DAILY folic acid 1 mg tablet 1 mg PO DAILY aspirin 81 mg tablet 81 mg PO DAILY progesterone micronized 200 mg capsule 400 mg PO DAILY ascorbic acid (vitamin C) 500 mg capsule, extended release 500 mg PO DAILY ferrous sulfate 325 mg (65 mg iron) capsule, extended release 325 mg PO ONCE sucralfate 1 gram tablet 1 g PO BID Qty: 60 2RF famotidine [Pepcid] 20 mg tablet 20 mg PO BID Qty: 60 2RF metoclopramide HCl [Reglan] 5 mg tablet 5 mg PO BID Qty: 60 2RF Rx Instructions: take once daily ondansetron HCl 4 mg tablet 4 mg PO Q8H PRN (Reason: nausea and vomiting) Qty: 30 0RF Discharge Orders: Discharge ED (Routine); Ordered 11/12/25 Ordered By: Max Arevalo Referrals: Elina Mtz APN [Primary Care Provider, Family Practice] Discharge Diet: Advance as tolerated Discharge Activity: Resume usual activity Patient Instructions: Bleeding (ED) Print Language: Kyrgyz Coding Level of Care Code ED Draw Operator for Heidi Alexander
--- OUTSIDE RECORDS SUMMARY | 2025-11-12 04:52 | XMS_ITS | Patient Health Record ---
Author Organization [facility] Address [address] [place] [address] Care Team Providers Care Rn Staffing Name Role Phone Elina Mtz Primary Care Provider [phone] MAR[place], [facility] Unavailable Unavailable Allergies Allergen (clinical drug ingredient) Drug/Non Drug Allergy documented on EMR Reaction Allergy Type Onset Date Status Penicillin Unknown Drug Allergy Active Results Component Value Reference Range Flag Notes Test, Urine - 8102 5 Reviewed date:04/09/2025 02:37:18 PM Interpretation: Performing Lab: Notes/Report: Test, Urine positive UA Without Micro-Auto, [place] - [id number] Reviewed date:01/22/2025 08:42:12 AM Interpretation: Performing Lab: Notes/Report: Color orange Clarity cloudy Glucose negative Bili negative Ketones negative Sp [place] 1.010 Blood negative pH 7.0 Protein negative Urobili negative Nitrites positive Leukocytes 3+ T3 Free [id number] Reviewed date:01/14/2025 12:42:35 PM Interpretation: Performing Lab: Notes/Report: Diagnosis Description: Encounter for screening for other suspected endocrine disorder Free T3 3.7 2.3-4.2 pg/mL T4 [id number] Reviewed date:01/14/2025 12:42:41 PM Interpretation: Performing Lab: Notes/Report: Diagnosis Description: Encounter for screening for other suspected endocrine disorder Free T4 1.13 0.89-1.76 NG/DL HCG Serum Quant [id number] Reviewed date:01/22/2025 08:42:38 AM Interpretation: Performing Lab: Notes/Report: Diagnosis Description: Abnormal uterine and vaginal bleeding, unspecified HCG Quant 3 NA 1-3 mlU/ML non female . < 1 mlU/ML adult male Thyroid Stimulating Hormone (TSH) 25229 Reviewed date:01/22/2025 08:42:49 AM Interpretation: Performing Lab: Notes/Report: Diagnosis Description: Encounter for screening for other suspected endocrine disorder TSH 2.031 .358-3.740 MlU/ML CBC w\ Auto Diff 30548 Reviewed date:01/22/2025 08:43:01 AM Interpretation: Performing Lab: [...] 40.0-70.0 % Lymph Auto% 25.2 22.0-44.0 % Mayes Auto% 6.1 3.0-7.0 % Eos Auto% 1.7 2.0-4.0 % LOW Baso Auto% 0.7 0.0-1.0 % Imm Gran% .2 .0-.4 % Neutro Abs 5.45 .80-7.70 Absolute Neutrophil Count 5450 NA Lymph Abs 2.08 .10-4.10 Mayes Abs .50 .20-1.00 Eos Abs .14 .00-.40 Baso Abs .06 .00-.20 Imm Gran Abs .02 .00-.10 NRBC# .00 .00-.20 X10'3 NRBC% .00 .00-.20 /100 int act WBC's Reason For Referral Reason IUP Diagnosis 1 IUP (intrauterine pr egnancy), incidental (Z33.1) Referral Organization [facility] Referring Provider First Name Elina Referring Provider Last Name Smith Referring Provider Speciality Nurse Prac titioner Referred Provider undefined General Notes Alis Ortega 04/22 03:47:44 PM >FAXED TO DR JIMENEZ AT [facility] Referral Priority Routine Medications Medication SIG (Take, [...] nts Flucelvax Trivalent, Syringe 0.5 mL, PF Unknown 09/25/2024 Refused Flucelvax Trivalent, Syringe 0.5 mL, PF IM Intramuscular 12/17/2024 Administered Patient tolerat ed well. Tuberculin PPD IM Intramuscular 12/03/2024 Administered Patient tolerated well. Will return on 12/05/24 to be read. Patient did not return to have read Tuberculin PPD IM Intramuscular 12/17/2024 Administered Marty clayton tolerated well. Patient did not get ppd read last time, She is to return 12/19/2024 to have read Social History Tobacco Use: [...] Status Risk Notes Problem Bipolar 1 disorder (152025606) Bipolar 1 disorder (F31.9) Active confirmed Problem Attention deficit hyperactivity disorder (545200432) Attention deficit hyperactivity disorder (ADHD), unspecified ADHD type (F90.9) Active confirmed Problem Sinusitis (55319618) Sinusitis (J32.9) Active confirmed Problem Amenorrhea (77547924) Amenorrhea (N91.2) Active confirmed Problem Abnormal vaginal bleeding (953404317) Abnormal vaginal bleeding (N93.9) Active confirmed Problem Seasonal allergy (887493235) Seasonal allergies (J30.2) Active confirmed Problem Anxiety depression (840730879) Anxiety with depression (F41.8) Active confirmed Problem Gastroesophageal reflux disease (340007574) GERD (gastroesophagea l reflux disease) (K21.9) Active [...] 04/09/2025 Encounters Encounter Location Date Provider Diagnosis [facility] [address] [place] [address] 11/18/2024 Elinagregorio Mtz Ringworm of body B35.4 [facility] [address] [facility] [address] [place] [address] 04/09/2025 Elina Mtz IUP (intrauterine ), incidental Z33.1 and Nausea R11.0 [facility] [address] [facility] [address] [place] [address] 12/03/2024 Elinagregorio Mtz Need for tuberculosi s vaccination Z23 [facility] [address] [facility] [address] [place] [address] 01/21/2025 Elinaailyn Mtz Acute urinary tract infection N39.0 [facility] [address] [facility] [address] [place] [address] 01/13/2025 Elinagregorio Mtz Abnormal vaginal bleeding N93.9 and Screening for thyroid disorder Z13.29 [facility] [address] [facility] [address] [place] [address] 12/30/2024 Elinagregorio Mtz Bipolar 1 disorder F31.9 and Anxiety with depression F41.8 [facility] [address] [facility] [address] [place] [address] 12/17/2024 Elinagregorio Mtz Encounter for immunization Z23 [facility] [address] [facility] [address] [place] [address] 04/22/2025 Elina Mtz IUP (intrauterine ), incidental Z33.1 [facility] [address] [facility] [address] [place] [address] 12/18/2024 Elina Anaderrick Sinusitis J32.9 Assessments Encounter Date Diagnosis (ICD Code) Assessment Notes Treatment Notes Treatment Clinical Notes Section Notes 04/22/2025 IUP (intrauterine ), incidental (ICD-10 - Z33.1) 04/09/2025 Nausea (ICD-10 - R11.0) 04/09/2025 IUP (intrauterine ), incidental (ICD-10 - Z33.1) 01/13/2025 Abnormal vaginal bleeding (ICD-10 - N93.9) 01/13/2025 Screening for thyroid disorder (ICD-10 - Z13.29) 12/18/2024 Sinusitis (ICD-10 - J32.9) 12/17/2024 Encounter for immunization (ICD-10 - Z23) Immunization supplied by [employer]. 12/03/2024 Need for tuberculosis vaccination (ICD-10 - Z23) 11/18/2024 Ringworm of body (ICD-10 - B35.4) RTC if no improvement with treatment. 12/30/2024 Bipolar 1 disorder (ICD-10 - F31.9) Recheck in 3 months. 01/21/2025 Acute urinary tract infection (ICD-10 - N39.0) Increase water intake, take medication as directed. RTC if no improvement with treatment. 12/30/2024 Anxiety with depression (ICD-10 - F41.8) Continue Lexapro, stable. 01/13/2025 Other Venipuncture performed. Left arm. One attempt. Pt tolerated well, bleeding controlled with light dressing.Alis Ortega LPN Plan Of Treatment No Information Insurance Providers Payer Name Payer Address Payer Phone Subscriber Number Group Number Insured Name Patient Relationship to Insured Coverage Start Date Coverage End Date [place] [address] [place] [address] [phone] [id number] Lavell Coronado Self - patient is the insured 4 Medications Administered Medication Instructions Date of Administration Dosage Notes dexAMETHasone 05/29/2023 8 mg [id number] tolerated well. Medical (General) History Medical History History ICD Code bipolar disorder Surgical History Surgery Date(Month/Year) tonsillectomy and adenoidectomy
[2025-11-12 04:58] VITALS: PULSE 83; RESP 15; O2SAT 100
[2025-11-12] MEDS: morphine 4 mg/mL SDV 1 mL IVP (05:27)
[2025-11-12] MEDS: ondansetron 2 mg/ML SDV 2 mL 4 MG IVP (05:27)
[2025-11-12 05:28] VITALS: BP 121/86; PULSE 85; O2SAT 99
[2025-11-12 05:31] LABS: Hematocrit 26.3 % (36-47); Hemoglobin 7.50 g/dL (11.27-16.99); Mean Corpuscular HGB Conc 28.5 g/dL (30-55); Mean Corpuscular Hemoglobin 21.3 pg (27-33); Mean Corpuscular Volume 74.7 fl (85-98); Nucleated Red Blood Cells % 0 %; Platelet Count 200 10^3/cmm (157-399); Red Blood Count 3.52 10^6/uL (3.85-5.65); White Blood Count 10.44 10^3/uL (3.29-11.43)
[2025-11-12 05:42] LABS: Fibrinogen 390 mg/dL (174-498); INR 0.86 (0.8-1.2); Partial Thromboplastin Time 25.7 SECONDS (23.9-36.7); Prothrombin Time 12.40 SECONDS (12.1-14.9)
[2025-11-12] MEDS: methylergonovine 0.2 mg/mL INJ 1 mL IM (05:42)
[2025-11-12 05:44] LABS: Alanine Aminotransferase 8 U/L (0-33); Albumin Level 2.7 g/dL (3.5-5.2); Alkaline Phosphatase 146 U/L (35-105); Aspartate Amino Transferase 27 U/L (0-32); Blood Urea Nitrogen 7 mg/dL (6-20); Calcium 8.0 mg/dL (8.5-10.5); Carbon Dioxide 23 mmol/L (22-29); Chloride 106 mmol/L (98-107); Globulin 2.5 g/dL (1.3-4.6); Glucose 88 mg/dL (65-115); Osmolality Calculated 285 mOsm/kg (285-295); Sodium 139 mmol/L (136-145); Total Protein 5.2 g/dL (6.6-8.7)
[2025-11-12 05:48] LABS: Anion Gap 13.9 (5-19); Potassium 3.9 mmol/L (3.5-5.1)
[2025-11-12 05:55] LABS: Platelet Count 200 10^3/cmm (157-399)
[2025-11-12 06:00] VITALS: BP 131/73; PULSE 66; O2SAT 100
--- NOTE | 2025-11-12 06:50 | P.CONIM_ITS ---
Providers/Reason for Consult 2 Consulting Physican/Specialty*: Martin Collins MD, ob-mri supervisor Reason for Consult*: vaginal bleeding Requesting Physcian: ER Primary 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: Martin Collins MD Primary Care Provider: Elina Mtz APN 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 Consult HPI History of Present Illness Lavell Coronado is a 20 year old female A2 s/p twins November 09, 2025 presented to ER early this morning c/o heavy vaginal bleeding with clots was doing well after delivery and was discharged to home in good condition on November 11 began to have heavy vaginal bleeding approximately 3 hours ago + mild cramps No dizziness, fever, chills, abdominal pain Medications/Allergies Home Medications ?Medication ?Instructions ?Recorded ?Confirmed ?Last Taken ?Type docosahexaenoic acid 200 mg 200 mg PO DAILY 10/26/23 1 10/16/25 History capsule ( DHA) famotidine 20 mg tablet (Pepcid) 20 mg PO BID #60 tabs 04/24/25 11/11/25 10/17/25 Rx metoclopramide HCl 5 mg tablet 5 mg PO BID #60 tabs 11/11/25 10/17/25 Rx (Reglan) ondansetron HCl 4 mg tablet 4 mg PO Q8H PRN nausea and 06/18/25 11/11/25 10/17/25 Rx vomiting #30 tabs aspirin 81 mg tablet 81 mg PO DAILY 06/26/2510/1510/16/25 History folic acid 1 mg tablet 1 mg PO DAILY 06/26/2511/1110/16/25 History ascorbic acid (vitamin C) 500 mg 500 mg PO DAILY 09/2411/11/25 10/16/25 History capsule,extended release ferrous sulfate 325 mg (65 mg 325 mg PO ONCE 09/24/25 11/11/25 10/16/25 History iron) capsule,extended release progesterone micronized 200 mg 400 mg PO DAILY 5 11/11/25 10/16/25 History capsule sucralfate 1 gram tablet 1 g PO BID #60 tabs 09/24/25 11/11/25 10/17/25 Rx Allergies Allergy/AdvReac Type Severity Reaction Status Date / Time amoxicillin Allergy Unknown ALGY-Anaphy Verified 12/26/25 21:55 laxis Penicillins Allergy Unknown ALGY-Anaphy Verified 11/07/25 21:55 laxis PFSH 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 2 PFSH: Medical History (Updated 11/12/25 @ 06:30 by Max Arevalo MD) Anxiety Major depression Bipolar 1 disorder Borderline personality disorder ADHD (attention deficit hyperactivity disorder) evaluation Fracture of radial head, left, closed Surgical History Hx of tonsillectomy H/O adenoidectomy Family History Mother Diabetes Grandmother Diabetes Grandfather Diabetes Other Diabetes mellitus type 1 Denies family history of Colon cancer Ovarian cancer Heart disease Breast cancer Hypertension Uterine cancer Thyroid disease Stroke Social History Smoking and tobacco/nicotine status: never used tobacco/nicotine Other Female Reproductive History: Hx Age of Menarche: 9 Vitals/I&O/Wt Last Vital Signs Temp 98.2 F 11/12/25 04:49 Pulse 67 11/12/25 07:01 Resp 15 11/12/25 04:58 BP 115/69 11/12/25 07:01 Pulse Ox 99 11/12/25 07:01 O2 Del Method Room Air 11/12/25 04:49 Physical Exam 2 Narrative: General comfortable, awake, alert, appropriate VS afebrile, VS normal Lungs: clear Cor: RRR Abd: soft, nondistended, nontender Fundus firm Vulva: normal. Perineal repair intact Vagina: normal. Minimal blood in vaginal vault Cervix: normal. No active bleeding Ext: normal Hgb 11-07-25 8.7 11-10-25 7.8 11-12-25 7.5 Data 11/12/25 05:00 11/12/25 05:00 A&P Assessment and plan 1. Vaginal bleeding: PPD #3 of twins Vaginal bleeding Possibilities include subinvolution of uterus, vs. retained products of conception Will treat with methergine 0.2 mg IM There has been no significant drop in Hgb Patient is not actively bleeding at this time Will discharge patient to home Continue to observe for bleeding Informed patient that if heavy bleeding recurs, may need D&C Instructed patient to call me or return to ER for heavy bleeding PDMP PDMP Reviewed: Not Reviewed Coding Level of Care Code Acute Code for Chg Fwd Diagnoses Vaginal bleeding N93.9
[2025-11-12 07:01] VITALS: BP 115/69; PULSE 67; O2SAT 99
== END 2025-11-12 07:04 | disposition home or self-care (01) ==
PROVIDERS: Emergency Provider Emergency Medicine; PCP Nurse Practitioner Family
DX: N93.9 Abnormal uterine and vaginal bleeding, unspecified (principal); Z79.82 Long term (current) use of aspirin
CPT/HCPCS: 80053; 85025; 85049; 85378; 85384; 85610; 85730; 86850; 86900; 96372; 96374; 96375; 99284; J2210; J2270; J2405; J9999